=== PATIENT | male | born 1955 | race Caucasian/White ===

== ENCOUNTER 2024-05-15 10:36 | Observation (INO) ==
--- NOTE | 2024-05-15 11:26 | DR.AMS ---
HPI Time Seen Time Seen by Provider: 05/15/24 10:48 HPI Comment HPI Comment: Patient with altered mental status and weakness over the last couple of weeks. Patient's states that he is not acting himself has appeared more confused than usual. Patient does have a history of esophageal cancer stage IV and had a trach which has been pulled. Patient is not very responsive and family is not in the room at this time but report had a that initial call was for stroke. PMH PMH Past Medical History: Cancer Past Surgical History: Yes Surgical History: Angioplasty/Stents Family History Family Medical History: [place] Social History Do you use any recreational Drugs:: No ROS Review of Systems Constitutional: See HPI and Weakness Respiratoy: No Symptoms Reported Cardiovascular: negative Chest Pain Neurological: Weakness; negative Numbness, Paresthesia, Seizure, Tingling or Dizziness Unable to Obtain Due To: Altered mental status (History limited due to patient condition. Patient responded by nodding to some questions) PE Vitals Vital Signs: Temp Pulse Resp BP Pulse Ox O2 Del Method 05/15/24 16:15 79 17 05/15/24 16:15 176/100 05/15/24 16:00 169/130 05/15/24 16:00 104 H 17 05/15/24 15:45 81 17 05/15/24 15:45 151/107 05/15/24 15:30 172/99 05/15/24 15:30 86 20 05/15/24 15:16 90 15 99 05/15/24 15:16 162/104 05/15/24 15:15 114 H 16 100 05/15/24 15:01 117 H 15 05/15/24 15:01 180/123 05/15/24 15:00 116 H 21 05/15/24 14:45 114 H 20 05/15/24 14:45 162/117 05/15/24 14:30 113 H 20 05/15/24 14:30 149/102 05/15/24 14:15 113 H 13 05/15/24 14:15 140/85 05/15/24 14:00 146/89 05/15/24 14:00 104 H 18 05/15/24 13:45 152/104 05/15/24 13:45 119 H 18 05/15/24 13:30 122 H 15 05/15/24 13:30 145/88 05/15/24 13:15 118 H 21 05/15/24 13:15 150/101 05/15/24 13:08 115 H 16 100 05/15/24 13:08 158/101 05/15/24 13:00 160/115 05/15/24 13:00 118 H 17 05/15/24 12:45 93 H 18 05/15/24 12:38 115 H 15 100 05/15/24 12:38 163/121 05/15/24 12:30 122 H 17 98 05/15/24 12:15 88 18 83 L 05/15/24 12:00 87 17 99 05/15/24 12:00 225/123 05/15/24 11:45 87 15 05/15/24 11:31 120 H 14 05/15/24 11:31 216/112 05/15/24 11:30 120 H 15 05/15/24 11:15 123 H 14 100 05/15/24 11:09 85 10 L 100 05/15/24 11:09 248/118 05/15/24 11:06 85 25 H 05/15/24 10:57 87 21 05/15/24 10:51 97.8 F 83 227/122 100 Room Air General Limitations: Altered Mental Status General Appearance: Alert and Other (Confused) Head Head Exam: Normal Inspection, Atraumatic and Normocephalic Eyes Eye exam: Normal Appearance Pupils: Regular, Round: Left and Reactive: Left ENT ENT Exam: Normal Exam External Ear Exam: Normal External Inspection Nose Exam: Normal Nose Exam Mouth Exam: Normal Inspection Throat Exam: Normal Inspection Neck Neck Exam: Normal Inspection Chest Chest Inspection: Normal Inspection Respiratory Respiratory Exam: Normal Lung Sounds Bilat Cardiovascular Cardiovascular Exam: Regular Rate and Normal Rhythm Abdominal Exam Abdominal Exam: Normal Inspection, Normal Bowel Sounds and Soft Extremities Extremities Exam: Normal Inspection Back Back Exam: Normal Inspection Neurological Neurological Exam: Alert, CN II-XII Intact and Other (See teleneuro.) Psychological Psychiatric Exam: Normal Affect and Normal Mood Skin Skin Exam: Warm, Dry, Intact and Normal Color COURSE Treatment Treatment: Discussed case with teleneuro Dr. Aguilar. No acute stroke noted on CT but older lacunar type infarcts in changes noted. Patient appears to be having more issues with failure to thrive and poor nutrition. They recommended MRI in the next few days for follow-up. We attempted CTA but having a very difficult time with IV access. Teleneuro recommended continuing Plavix and using 81 mg aspirin at this time. Teleneuro called again and we discussed her options and CTA has not been able to be done due to difficulties with IV access. Attempts with more than slants have failed. Will discuss with vascular surgeon to possibly attempt central line. Due to this issue with vascular axis will try MRI without contrast, however there is limited access to this modality at this location at this time. Given the patient's history and symptoms along with previous imaging I think it would be reasonable if unable to do MRI tonight to do it in the morning. Consultation Called: 17:15 Consultation Comments: Discussed case with Dr. Sarabia and he is agreeable to admission. [facility] Labs Reviewed 05/15/24 12:35 05/15/24 12:35 Laboratory: WBC 4.4 X10^3/uL (3.6-10.0) 05/15/24 12:35 RBC 4.17 X10^6/uL (4.7-6.0) L 05/15/24 12:35 Hgb 12.1 g/dL (13.5-18.0) L 05/15/24 12:35 Hct 36.5 % (42.0-54.0) L 05/15/24 12:35 MCV 87.5 fL (80.0-100.0) 05/15/24 12:35 MCH 29.0 pg (27.0-34.0) 05/15/24 12:35 MCHC 33.1 g/dL (33.0-35.0) 05/15/24 12:35 RDW 24.4 % (11.6-16.5) H 05/15/24 12:35 Plt Count 141 X10^3/uL (150.0-450.0) L 05/15/24 12:35 Plt Count Comment Decreased (ADEQUATE) 05/15/24 12:35 MPV 9.2 fL (7.4-11.0) 05/15/24 12:35 Neut % (Auto) 68.9 % (42.0-75.0) 05/15/24 12:35 Lymph % (Auto) 15.0 % (21.0-51.0) L 05/15/24 12:35 [place] % (Auto) 14.8 % (0.0-13.0) H 05/15/24 12:35 Eos % (Auto) 0.3 % (0.9-2.9) L 05/15/24 12:35 Baso % (Auto) 1.0 % (0.2-1.0) 05/15/24 12:35 Neut # (Auto) 3.0 x10^3/uL (2.2-4.8) 05/15/24 12:35 Lymph # (Auto) 0.7 X10^3/uL (1.3-2.9) L 05/15/24 12:35 [place] # (Auto) 0.6 x10^3/uL (0.3-0.8) 05/15/24 12:35 Eos # (Auto) 0.0 x10^3/uL (0.0-0.2) 05/15/24 12:35 Baso # (Auto) 0.0 X10^3/uL (0.0-0.1) 05/15/24 12:35 Absolute Nucleated RBC 0.2 /100WBC 05/15/24 12:35 Plt Morphology Comment Normal (NORMAL) 05/15/24 12:35 RBC Morphology Abnormal (NORMAL) 05/15/24 12:35 Anisocytosis 3+ A 05/15/24 12:35 Target Cells Slight A 05/15/24 12:35 Schistocytes Slight A 05/15/24 12:35 Sodium 138 mmol/L (136-145) 05/15/24 12:35 Corrected Sodium TNP 05/15/24 12:35 Potassium 3.5 mmol/L (3.5-5.1) 05/15/24 12:35 Chloride 99 mmol/L (98-107) 05/15/24 12:35 Carbon Dioxide 29.9 mmol/L (21-32) 05/15/24 12:35 BUN 17 mg/dL (7-18) 05/15/24 12:35 Creatinine 1.41 mg/dL (0.70-1.30) H 05/15/24 12:35 Est GFR (MDRD) Af Amer > 60 (>60) 05/15/24 12:35 Est GFR (MDRD) Non-Af 53 (>60) L 05/15/24 12:35 Glucose 86 mg/dL (65-99) 05/15/24 12:35 Calcium 8.8 mg/dL (8.5-10.1) 05/15/24 12:35 Corrected Calcium 9.9 mg/dL (8.5-10.1) 05/15/24 12:35 Total Bilirubin 0.60 mg/dL (0.2-1.0) 05/15/24 12:35 AST 66 Units/L (15-37) H 05/15/24 12:35 ALT 20 Units/L (12-78) 05/15/24 12:35 Alkaline Phosphatase 109 Units/L (46-116) 05/15/24 12:35 Total Protein 8.5 g/dL (6.4-8.2) H 05/15/24 12:35 Albumin 2.6 g/dL (3.4-5.0) L 05/15/24 12:35 Globulin 5.9 g/dL (2.5-4.5) H 05/15/24 12:35 Albumin/Globulin Ratio 0.4 Ratio (1.1-2.1) L 05/15/24 12:35 Specimen Type Clean catch urine 05/15/24 11:55 Urine Color Yellow (YELLOW) 05/15/24 11:55 Urine Appearance Clear (CLEAR) 05/15/24 11:55 Urine pH 6.5 (5.0 - 8.0) 05/15/24 11:55 Ur Specific [place] 1.020 (1.000-1.030) 05/15/24 11:55 Urine Protein 4+ (NEGATIVE) 05/15/24 11:55 Urine Glucose (UA) Negative (NEGATIVE) 05/15/24 11:55 Urine Ketones Negative (NEGATIVE) 05/15/24 11:55 Urine Blood 3+ (NEGATIVE) 05/15/24 11:55 Urine Nitrite Negative (NEGATIVE) 05/15/24 11:55 Urine Bilirubin Negative (NEGATIVE) 05/15/24 11:55 Urine Urobilinogen Normal (NORMAL) 05/15/24 11:55 Ur Leukocyte Esterase Negative (NEGATIVE) 05/15/24 11:55 Urine RBC 0-2 /HPF (0-3) 05/15/24 11:55 Urine WBC None seen /HPF (0-5) 05/15/24 11:55 Ur Squamous Epith Cells Negative /HPF (NEGATIVE) 05/15/24 11:55 Urine Bacteria Trace /HPF (NEGATIVE) 05/15/24 11:55 Hyaline Casts Rare /LPF (NEGATIVE) 05/15/24 11:55 Ur Culture Indicated? No/not indicated 05/15/24 11:55 Urine Opiates Screen Negative (NEG=<300) 05/15/24 11:55 Urine Methadone Screen Negative (NEG=<300) 05/15/24 11:55 Ur Barbiturates Screen Negative (NEG=<200) 05/15/24 11:55 Ur Phencyclidine Scrn Negative (NEG=<25) 05/15/24 11:55 Ur Amphetamines Screen Negative (NEG=<1000) 05/15/24 11:55 U Benzodiazepines Scrn Negative (NEG=<200) 05/15/24 11:55 Urine Cocaine Screen Negative (NEG=<300) 05/15/24 11:55 U Marijuana (THC) Screen Negative (NEG=<50) 05/15/24 11:55 Opioid Opioid Risk Tool Age (Diego box if 16-45): No History of Preadolescent Sexual Abuse: No Total: 0 Total Score Risk Category: Low Risk Copyright: Tino DE LA CRUZ predicting aberrant behaviors Discharge Plan Diagnosis Discharge Problem: Suspected cerebrovascular accident (CVA), Adult failure to thrive, Physical deconditioning Altered mental status Qualifiers: Altered mental status type: unspecified Qualified Code(s): R41.82 - Altered mental status, unspecified Discharge Plan Patient Disposition: 09 ADMITTED INPATIENT Condition: Stable Prescriptions: No Action clopidogrel [Plavix] 75 mg Tablet 75 mg PO DAILY levothyroxine 100 mcg Tablet 100 mcg PO DAILY rosuvastatin 20 mg Tablet 20 mg PO HS aspirin 81 mg Capsule 81 mg PO QDAY Health Concerns: Post Hospitalization: new medications and changes needed to prevent readmission or further decline. Pt educated and given instructions on all concerns. Plan of Treatment: Continue with present treatment and follow up plan. Pt is to keep follow up appointment as instructed and take medications as ordered. Orders to Discharge Patient Discharge Orders: Transfer (Routine); Ordered 05/15/24 Ordered By: Kole Moreno Follow ups/Referrals Follow ups/Referrals: RISHABH SARABIA [Primary Care Provider] - 3 days Instructions Stand Alone Forms: Find Help Web Site, Post Hospital Follow Up Care
--- NOTE | 2024-05-15 11:28 | EKG ---
Test Reason : AMS Blood Pressure : */* mmHG Vent. Rate : 88 BPM Atrial Rate : 88 BPM P-R Int : 160 ms QRS Dur : 82 ms QT Int : 402 ms P-R-T Axes : 53 53 12 degrees QTc Int : 486 ms Sinus rhythm with premature atrial complexes Septal infarct , age undetermined Abnormal ECG No previous ECGs available Confirmed by Kevin Herrmann MD ([id number]) on 05/15/2024 1:52:30 PM Referred By: Confirmed By: Kevin Herrmann MD
--- NOTE | 2024-05-15 11:45 | CT ---
EXAM: BRAIN W/O CON HISTORY: AMS/STOKE SUSPECTED; COMPARISON: None. TECHNIQUE: Axial CT of the head is performed from the base of the skull through the vertex without contrast . Mu ltiplaner reformats are generated from the original axial data. FINDINGS: The baseline CT of the head demonstrates advanced degenerative white matter changes consisting of con fluent hypoattenuation of the deep periventricular, subcortical, and capsular white matter tracts of the supratentorial brain, also contiguous with the superior cerebellum and central pontine regions. There are several chronic appearing lacunar infarctions which involve aspects of the left internal ca psule, putamen nucleus and left thalamus. The initial CT of the head demonstrates no intracranial he morrhage or acute stage, large artery territorial infarction. There is no global mass effect, midlin e shift, or evidence of cerebral edema. The ventricular size is concordant to the degree of central cortical volume loss. There is atherosclerosis of the anterior and posterior intracranial circulatio n. The cerebellar tonsils are normal in position. No suprasellar asymmetry is identified. There are tr jill bilateral mastoid effusions dependently. There is a small mucous retention cyst or polyp associa ralph with the right sphenoid sinus. The remaining sinuses are predominantly clear. IMPRESSION: No intracranial hemorrhage or large artery territorial infarction identified on the initial CT of the head Advanced degenerative white matter signal changes and remote lacunar infarctions related to chronic s mall-vessel ischemia as detailed above. Central cortical volume loss with ex vacuo dilatation of the ventricular system If there is definite, focal, acute neurologic deficit, follow up imaging is recommended to evaluate f or evolutionary changes. MRI with DWI provides the highest level of initial sensitivity for the detec tion of acute ischemic infarcts. Radiation dose reduction was achieved through individualized adjustment of kVP and/or mA, through ada ptive statistical iterative reconstruction, and/or through automated tube current modulation. THIS IS AN ELECTRONICALLY VERIFIED FINAL REPORT 05/15/2024 11:30 AM - Electronically signed by Dwayne Torres MD
[2024-05-15 12:06] LABS: BILIRUBIN,URINE NEGATIVE (NEGATIVE); BLOOD/HEMOGLOBIN,URINE 3+ (NEGATIVE); GLUCOSE, URINE NEGATIVE (NEGATIVE); KETONES,URINE NEGATIVE (NEGATIVE); LEUKOCYTE ESTERASE ,URINE NEGATIVE (NEGATIVE); NITRITES,URINE NEGATIVE (NEGATIVE); PH,URINE 6.5 (5.0 - 8.0); PROTEIN,URINE 4+ (NEGATIVE); UROBILINOGEN,URINE NORMAL (NORMAL)
[2024-05-15 12:15] LABS: APPEARANCE,URINE CLEAR (CLEAR); COLOR,URINE YELLOW (YELLOW)
[2024-05-15 12:16] LABS: BACTERIA,URINE TRACE /HPF (NEGATIVE); HYALINE CASTS, URINE RARE /LPF (NEGATIVE); RBC,URINE 0-2 /HPF (0-3); SQUAMOUS EPITHELIAL CELL,UR NEGATIVE /HPF (NEGATIVE)
--- NOTE | 2024-05-15 12:23 | TELESTROKE ---
[facility] Consult Date of Consult Date of Exam: 05/15/24 Time of Arrival to the ED: 10:36 Allergies Allergies Allergy/AdvReac Type Severity Reaction Status Date / Time oxycodone Allergy Verified 03/26/24 22:13 Vital Signs Vital Signs: Temp Pulse Resp BP Pulse Ox O2 Del Method 05/15/24 12:00 87 17 99 05/15/24 12:00 225/123 05/15/24 11:45 87 15 05/15/24 11:31 120 H 14 05/15/24 11:31 216/112 05/15/24 11:30 120 H 15 05/15/24 11:15 123 H 14 100 05/15/24 11:09 85 10 L 100 05/15/24 11:09 248/118 05/15/24 11:06 85 25 H 05/15/24 10:57 87 21 05/15/24 10:51 97.8 F 83 227/122 100 Room Air History of Present Illness History of Present Illness: [facility] Patient Name:Cade Cabral Date of :1955 Identification Number: Date of Service:05/15/2024 10:49:21 Diagnosis:G93.49 - Encephalopathy Multifactorial Impression: 68 y/o man with history of throat cancer s/p trach, htn, cad, hld, PAD who is here w/ AMS and generalized weakness. He has had a decline in the last month and then worsened significantly overnight. ?subacute stroke vs metabolic encephalopathy from failure to thrive. He is not in the window for thrombolytic. Will need cta head/neck stat and admit for MRI brain w/o. Ok to add asa today to plavix. Start MVI and thiamine. Check b12, folate. Our recommendations are outlined below. Recommendations: Stroke/Telemetry Floor Neuro Checks Bedside Swallow Eval DVT Prophylaxis IV Fluids, Normal Saline Head of Bed 30 Degrees Euglycemia and Avoid Hyperthermia (PRN Acetaminophen) Initiate or continue Aspirin 81 MG daily Initiate Clopidogrel 75 mg daily Antihypertensives PRN if Blood pressure is greater than 220/120 or there is a concern for End organ damage/contraindications for permissive HTN. If blood pressure is greater than 220/120 give labetalol PO or IV or Vasotec IV with a goal of 15% reduction in BP during the first 24 hours. check b12, folate start thiamine, mvi Sign Out: Discussed with Emergency Department Provider Advanced Imaging: Advanced imaging has been ordered. Results pending. Metrics: Last Known Well: Unknown Dispatch Time: 05/15/2024 10:49:21 Arrival Time: 05/15/2024 10:36:00 Initial Response Time: 05/15/2024 10:53:45Symptoms: AMS and generalized weakness. Initial patient interaction: 05/15/2024 11:02:48 NIHSS Assessment Completed: 05/15/2024 11:19:18Patient is not a candidate for Thrombolytic. Thrombolytic Medical Decision: 05/15/2024 11:19:19Patient was not deemed candidate for Thrombolytic because of following reasons: LKW outside 4.5 hr window. . I personally Reviewed the CT Head and it Showed old stroke left caudate -no acute bleed Primary Provider Notified of Diagnostic Impression and Management Plan on: 05/15/2024 11:26:07 History of Present Illness:Patient is a 68 year old Male. Patient was brought by EMS for symptoms of AMS and generalized weakness. Cade Cabral is a 68 y/o man with history of throat cancer s/p trach, htn, cad, hld, PAD who is here w/ AMS and generalized weakness. Family called EMS because he was lethargic and unable to walk. She had to help him to the bathroom, then he got up and was frozen, would not move and to keep him falling, she stood for two hours holding him up. She did this b/c she had no signal for cell phone. Per the he has been weak for the last month, not eating much, confused. He is needing help in the last week to eat, leaning on the things to walk, spends most of his time in a recliner. It really went downhill last night w/ needing more help. She s/w his vascular surgeon yesterday about his mental status who told it might improve after surgery next week for left lower leg PAD. Past Medical History: Hyperlipidemia Coronary Artery Disease There is no history of Hypertension There is no history of Diabetes Mellitus Other PMH: PAD throat cancer s/p trach Medications: No Anticoagulant use Antiplatelet use:Yesplavix and asa Reviewed EMR for current medications Allergies: Reviewed Social History: Smoking: Former Family History: There is no family history of premature cerebrovascular disease pertinent to this consultation ROS : 14 Points Review of Systems was performed and was negative except mentioned in HPI. Past Surgical History: There Is No Surgical History Contributory To Todays Visit Examination: BP(227/122),Pulse(83),Blood Glucose(145) 1A: Level of Consciousness - Arouses to minor stimulation+ 1 1B: Ask Month and Age - Both Questions Right+ 0 1C: Blink Eyes & Squeeze Hands - Performs Both Tasks+ 0 2: Test Horizontal Extraocular Movements - Normal+ 0 3: Test Visual Handy - No Visual Loss+ 0 4: Test Facial Palsy (Use Grimace if Obtunded) - Normal symmetry+ 0 5A: Test Left Arm Motor Drift - Drift, hits bed+ 2 5B: Test Right Arm Motor Drift - Drift, hits bed+ 2 6A: Test Left Leg Motor Drift - No Effort Against [place]+ 3 6B: Test Right Leg Motor Drift - No Effort Against [place]+ 3 7: Test Limb Ataxia (FNF/Heel-Roper) - Does Not Understand+ 0 8: Test Sensation - Normal; No sensory loss+ 0 9: Test Language/Aphasia - Normal; No aphasia+ 0 10: Test Dysarthria - Normal+ 0 11: Test Extinction/Inattention - No abnormality+ 0 NIHSS Score:11 NIHSS Free Text :s/p trach and speaking device is at home, cannot speak he is able to nod and shake his head appropriately can point to items Pre-Morbid Modified Mcculloch Scale:2 Points = Slight disability; unable to carry out all previous activities, but able to look after own affairs without assistance Spoke with :Collin This consult was conducted in real time using interactive audio and video technology. Patient was informed of the technology being used for this visit and agreed to proceed. Patient located in hospital and provider located at home/office setting. Patient is being evaluated for possible acute neurologic impairment and high probability of imminent or life-threatening deterioration. I spent total of 45 minutes providing care to this patient, including time for face to face visit via telemedicine, review of medical records, imaging studies and discussion of findings with providers, the patient and/or family. Dr Suzan Ayala [facility] For Inpatient follow-up with [facility] physician please call [facility] at . As we are not an outpatient service for any post hospital discharge needs please contact the hospital for assistance. If you have any questions for the [facility] physicians or need to reconsult for clinical or diagnostic changes please contact us via [facility] at . Medical Decision Making Labs: Laboratory Results - last 24 hr 05/15/24 11:55 Specimen Type Clean catch urine Urine Color Yellow Urine Appearance Clear Urine pH 6.5 Ur Specific [place] 1.020 Urine Protein 4+ Urine Glucose (UA) Negative Urine Ketones Negative Urine Blood 3+ Urine Nitrite Negative Urine Bilirubin Negative Urine Urobilinogen Normal Ur Leukocyte Esterase Negative Urine RBC 0-2 Urine WBC None seen Ur Squamous Epith Cells Negative Urine Bacteria Trace Hyaline Casts Rare Ur Culture Indicated? No/not indicated Urine Opiates Screen Negative Urine Methadone Screen Negative Ur Barbiturates Screen Negative Ur Phencyclidine Scrn Negative Ur Amphetamines Screen Negative U Benzodiazepines Scrn Negative Urine Cocaine Screen Negative U Marijuana (THC) Screen Negative
[2024-05-15] MEDS: APRESOLINE INJ 20 MG VIAL IVP ONE (12:39)
[2024-05-15 13:06] LABS: EOSINOPHILS % (AUTO) 0.3 % (0.9-2.9); HEMATOCRIT 36.5 % (42.0-54.0); HEMOGLOBIN 12.1 g/dL (13.5-18.0); LYMPHOCYTES # (AUTO) 0.7 X10^3/uL (1.3-2.9); MEAN CORPUSCULAR HGB CONC 33.1 g/dL (33.0-35.0); MEAN CORPUSCULAR VOLUME 87.5 fL (80.0-100.0); MEAN PLATELET VOLUME 9.2 fL (7.4-11.0); MONOCYTES # (AUTO) 0.6 x10^3/uL (0.3-0.8); MONOCYTES % (AUTO) 14.8 % (0.0-13.0); NEUTROPHILS % (AUTO) 68.9 % (42.0-75.0); PLATELET COUNT 141 X10^3/uL (150.0-450.0); RED BLOOD COUNT 4.17 X10^6/uL (4.7-6.0); RED CELL DISTRIBUTION WIDTH 24.4 % (11.6-16.5); WHITE BLOOD COUNT 4.4 X10^3/uL (3.6-10.0)
[2024-05-15 13:20] LABS: ALANINE AMINOTRANSFERASE 20 Units/L (12-78); ALBUMIN 2.6 g/dL (3.4-5.0); ALKALINE PHOSPHATASE 109 Units/L (46-116); ASPARTATE AMINO TRANSFERASE 66 Units/L (15-37); BLOOD UREA NITROGEN 17 mg/dL (7-18); CALCIUM 8.8 mg/dL (8.5-10.1); CARBON DIOXIDE 29.9 mmol/L (21-32); CHLORIDE 99 mmol/L (98-107); COR CA(FOR HYPOALB) 9.9 mg/dL (8.5-10.1); CREATININE 1.41 mg/dL (0.70-1.30); GLUCOSE 86 mg/dL (65-99); POTASSIUM 3.5 mmol/L (3.5-5.1); SODIUM 138 mmol/L (136-145); TOTAL PROTEIN 8.5 g/dL (6.4-8.2); eGFR NON BLACK RACES 53 (>60)
[2024-05-15 13:42] LABS: ANISOCYTOSIS 3+; PLATELET MORPHOLOGY COMMENT NORMAL (NORMAL)
[2024-05-15 13:43] LABS: SCHISTOCYTES SLIGHT; TARGET CELLS SLIGHT
--- NOTE | 2024-05-15 14:18 | RAD ---
EXAM: CHEST HISTORY: stroke; COMPARISON: None. TECHNIQUE: Frontal view of the chest was submitted for interpretation. FINDINGS: The cardiomediastinal silhouette enlarged lungs show no focal consolidation, pneumothorax, or pleura l fluid. IMPRESSION: No acute cardiopulmonary process. THIS IS AN ELECTRONICALLY VERIFIED FINAL REPORT 05/15/2024 2:14 PM - Electronically signed by Burton Titus MD
[2024-05-15] MEDS: NS 1,000 ML IV 1,000 ML IV ONE (14:39)
[2024-05-15] MEDS: ASPIRIN 81 MG CHEWTAB PO ONE (14:39)
[2024-05-15] MEDS: MVI INJ (ADULT) IV ONE (14:40)
--- NOTE | 2024-05-15 20:00 | CT ---
EXAM: CAROTID CTA HISTORY: Possible CVA COMPARISON: None. TECHNIQUE: Axial CT angiography of the neck with 100 mL Omnipaque 350 intravenous contrast. Coronal, sagittal an d MIP and/or 3D reconstructed images were created for further characterization by the technologist. Radiation dose: 681.99 mGy-cm total DLP FINDINGS: Right common carotid artery: No clinically significant stenosis, occlusion or dissection. Right internal carotid artery: No clinically significant stenosis of the extracranial segment. No dis section or occlusion. Right external carotid artery: No occlusion or clinically significant stenosis of the origin. Right vertebral artery: No clinically significant stenosis, occlusion or dissection. Left common carotid artery: No clinically significant stenosis, occlusion or dissection.. Left internal carotid artery: Up to 50% short-segment stenosis at the immediate origin of the left in ternal carotid artery secondary to calcified atherosclerotic plaque; 6 mm segment. No dissection or occlusion. Left external carotid artery: No occlusion or clinically significant stenosis of the origin. Left vertebral artery: No clinically significant stenosis. No dissection or occlusion. Bones/joints: No acute fracture. Soft tissues: Normal. No significant soft tissue swelling. Lungs: Imaged portion of the lungs are clear of focal airspace disease. Mild centrilobular and bharath eptal emphysema. IMPRESSION: 1. Up to 50% short-segment stenosis at the immediate origin of the left internal carotid artery secon speedy to calcified atherosclerotic plaque; 6 mm segment. No clinically significant stenosis, occlusio n or dissection identified involving the remainder arterial structures of the neck. 2. Mild centrilobular emphysema. REFERENCES: NASCET CRITERIA: The degree of internal carotid artery stenosis is based on NASCET criter ia. Normal is no stenosis. Mild is less than 50% stenosis. Moderate is 50-69% stenosis. Severe is 70% to 99% stenosis. Total occlusion is no detectable patent lumen. THIS IS AN ELECTRONICALLY VERIFIED FINAL REPORT 05/15/2024 7:48 PM - Electronically signed by Darien Hester MD
--- NOTE | 2024-05-15 20:00 | CT ---
EXAM: BRAIN CTA HISTORY: Possible CVA COMPARISON: CT head without contrast from May 15 2024 TECHNIQUE: Axial CT angiography of the head with intravenous contrast. Coronal, sagittal and MIP and/or 3D recon structed images were created for further characterization by the technologist. Radiation dose: mGy-cm total DLP FINDINGS: Anterior Circulation: Right internal carotid artery: No clinically significant stenosis, occlusion or aneurysm. Right middle cerebral artery: No clinically significant stenosis, occlusion or aneurysm. Right anterior cerebral artery: No clinically significant stenosis, occlusion or aneurysm. Left internal carotid artery: No clinically significant stenosis, occlusion or aneurysm. Left middle cerebral artery: No clinically significant stenosis, occlusion or aneurysm. Left anterior cerebral artery: No clinically significant stenosis, occlusion or aneurysm. Posterior Circulation: Right vertebral artery: Atherosclerotic changes involving the right intracranial segment of the right vertebral artery with multifocal areas of critical stenosis. Left vertebral artery: No clinically significant stenosis, occlusion or aneurysm. Basilar artery: No clinically significant stenosis, occlusion or aneurysm. Right posterior cerebral artery: No clinically significant stenosis, occlusion or aneurysm. Left posterior cerebral artery: No clinically significant stenosis, occlusion or aneurysm. Venous: No filling defects in the dural venous sinuses. Brain: No abnormal areas of acute attenuation in the brain parenchyma. Periventricular chronic micro vascular disease and age related global atrophy. Band of encephalomalacia in the left basal ganglia extending to the mid left alegria radiata. Bones/joints: No acute osseous abnormality. Soft tissues: Unremarkable. IMPRESSION: 1. Atherosclerotic changes involving the right intracranial segment of the right vertebral artery wit h multifocal areas of critical stenosis. No clinically significant stenosis, occlusion or aneurysm i dentified involving the remaining intracranial arterial structures. 2. No evidence of dural venous thrombosis. 3. Periventricular chronic microvascular disease and age related global atrophy. 4. Band of encephalomalacia in the left basal ganglia extending to the mid left alegria radiata. THIS IS AN ELECTRONICALLY VERIFIED FINAL REPORT 05/15/2024 7:53 PM - Electronically signed by Darien Hester MD
[2024-05-15] MEDS ORDERED: NS 1,000 ML IV 1,000 ML with MAGNESIUM SULFATE 50% INJ VIAL 1 G, MVI INJ (ADULT) 10 ML IV SCH (21:51)
[2024-05-15] MEDS ORDERED: CONSULT PHARMACY - POTASSIUM & MAGNESIUM XX SCH (21:51)
[2024-05-15] MEDS: NS 500 ML IV 500 ML IV ONE (22:35)
[2024-05-15] MEDS: OMNIPAQUE 350 mg/mL 100 mL BTL 100 ML ONE ×2 (22:36)
[2024-05-15] MEDS: NS 1,000 ML IV 1,000 ML ONE (22:36)
--- NOTE | 2024-05-15 23:05 | RAD ---
EXAM: CHEST, 1 VIEW HISTORY: confirm central line placement; COMPARISON: May 15, 2024 at 11:15. TECHNIQUE: Chest radiographic imaging, AP portable projection, 1 image FINDINGS: No cardiomegaly. Central line tip overlies the lower SVC at the cavoatrial junction. No focal airspace disease. No pleural effusion. No pneumothorax. No acute osseous abnormality. IMPRESSION: 1. No significant interval acute cardiopulmonary changes. 2. Central line tip overlies the lower SVC at the cavoatrial junction. THIS IS AN ELECTRONICALLY VERIFIED FINAL REPORT 05/15/2024 11:01 PM - Electronically signed by Darien Hester MD
[2024-05-15] MEDS: NS 1,000 ML IV 1,000 ML IV SCH (23:13)
[2024-05-16] MEDS: K-RIDER 10 MEQ/100 ML WATER 10 MEQ/100 ML BAG IV SCH (00:07)
[2024-05-16] MEDS: NS 1,000 ML IV 1,000 ML with MAGNESIUM SULFATE 50% INJ VIAL 1 G, MVI INJ (ADULT) 10 ML IV SCH (00:08)
[2024-05-16] MEDS: CRESTOR TAB 10 MG PO SCH (00:09)
--- NOTE | 2024-05-16 05:15 | EKG ---
Test Reason : Per Hypertension Protocol Blood Pressure : */* mmHG Vent. Rate : 128 BPM Atrial Rate : 128 BPM P-R Int : 150 ms QRS Dur : 84 ms QT Int : 318 ms P-R-T Axes : 89 80 -25 degrees QTc Int : 464 ms Sinus tachycardia Possible Anterior infarct (cited on or before 15-MAY-2024) Abnormal ECG When compared with ECG of 15-MAY-2024 11:24, premature atrial complexes are no longer present Questionable change in initial forces of Anteroseptal leads ST now depressed in Anterolateral leads Confirmed by Kevin Herrmann MD ([id number] on 05/16/2024 6:27:26 AM Referred By: Confirmed By: Kevin Herrmann MD
[2024-05-16] MEDS: NORMODYNE INJ 20 MG VIAL IV PRN (05:17)
[2024-05-16 05:29] LABS: BASOPHILS % (AUTO) 0.5 % (0.2-1.0); EOSINOPHILS % (AUTO) 0.7 % (0.9-2.9); HEMATOCRIT 37.1 % (42.0-54.0); HEMOGLOBIN 12.2 g/dL (13.5-18.0); LYMPHOCYTES # (AUTO) 0.7 X10^3/uL (1.3-2.9); LYMPHOCYTES % (AUTO) 17.1 % (21.0-51.0); MEAN CORPUSCULAR HEMOGLOBIN 28.8 pg (27.0-34.0); MEAN CORPUSCULAR HGB CONC 32.8 g/dL (33.0-35.0); MEAN CORPUSCULAR VOLUME 87.8 fL (80.0-100.0); MEAN PLATELET VOLUME 9.4 fL (7.4-11.0); MONOCYTES # (AUTO) 0.7 x10^3/uL (0.3-0.8); MONOCYTES % (AUTO) 18.1 % (0.0-13.0); NEUTROPHILS # (AUTO) 2.5 x10^3/uL (2.2-4.8); NEUTROPHILS % (AUTO) 63.6 % (42.0-75.0); PLATELET COUNT 132 X10^3/uL (150.0-450.0); RED BLOOD COUNT 4.23 X10^6/uL (4.7-6.0); RED CELL DISTRIBUTION WIDTH 24.3 % (11.6-16.5); WHITE BLOOD COUNT 3.9 X10^3/uL (3.6-10.0)
[2024-05-16 05:38] LABS: ALANINE AMINOTRANSFERASE 14 Units/L (12-78); ALBUMIN 2.2 g/dL (3.4-5.0); ALKALINE PHOSPHATASE 96 Units/L (46-116); ASPARTATE AMINO TRANSFERASE 58 Units/L (15-37); BLOOD UREA NITROGEN 14 mg/dL (7-18); CARBON DIOXIDE 24.8 mmol/L (21-32); CHLORIDE 101 mmol/L (98-107); COR CA(FOR HYPOALB) 9.4 mg/dL (8.5-10.1); CREATININE 1.34 mg/dL (0.70-1.30); GLUCOSE 81 mg/dL (65-99); POTASSIUM 3.2 mmol/L (3.5-5.1); SODIUM 136 mmol/L (136-145); TOTAL PROTEIN 7.6 g/dL (6.4-8.2); eGFR NON BLACK RACES 57 (>60)
[2024-05-16 05:47] LABS: ANISOCYTOSIS 3+; BURR CELLS PRESENT; PLATELET MORPHOLOGY COMMENT NORMAL (NORMAL); SCHISTOCYTES PRESENT; TARGET CELLS PRESENT
[2024-05-16] MEDS ORDERED: CONSULT PHARMACY - POTASSIUM & MAGNESIUM XX SCH (09:00)
[2024-05-16] MEDS ORDERED: NS + KCL 20 MEQ/L 1,000 ML with MAGNESIUM SULFATE 50% INJ VIAL 1 G, MVI INJ (ADULT) 10 ML IV SCH (10:00)
[2024-05-16] MEDS ORDERED: TOPROL XL PO ONE (10:41)
[2024-05-16] MEDS: TOPROL XL PO SCH (10:41)
[2024-05-16] MEDS: MICARDIS PO SCH (10:41)
[2024-05-16] MEDS: PLAVIX PO SCH (10:42)
[2024-05-16] MEDS: SYNTHROID 100 mcg TAB PO SCH (10:42)
[2024-05-16] MEDS: LOVENOX INJ 40 MG SYR SC SCH (10:43)
[2024-05-16] MEDS: ASPIRIN 81 MG CHEWTAB PO SCH (10:44)
[2024-05-16] MEDS: COLACE SYRUP 100 MG UDC PO NR (10:45)
[2024-05-16] MEDS ORDERED: NS 1,000 ML IV 1,000 ML IV SCH (11:00)
[2024-05-16] MEDS ORDERED: K-DUR TAB 20 MEQ PO SCH (11:00)
[2024-05-16] MEDS: NS 1,000 ML IV 1,000 ML IV SCH (11:02)
[2024-05-16] MEDS: COLACE CAP 100 MG PO STA (14:58)
[2024-05-16] MEDS: K-DUR TAB 20 MEQ PO SCH (17:48)
--- NOTE | 2024-05-16 19:56 | DR.CONSULT ---
CONSULT Consultation for Day of: Date: 05/16/24 Chief Complaint Chief Complaint: Change in mental status. Known bilateral significant peripheral vascular disease status post arterial intervention of the right leg for nonhealing wound including right superficial femoral artery atherectomy and drug-coated balloon angioplasty. 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 He been seeing me for bilateral significant peripheral vascular disease with complete occlusion of the left superficial artery and near complete occlusion of the right superficial femoral artery with nonhealing wound to the right great toe. He underwent atherectomy and balloon angioplasty of the right piriformis vein on March 26, 2024. He was post to have follow-up to see me to have the other side done but missed his appointment for surgery and his family said that he is had significant change of mental status and that is why he was brought to the emergency room today. He has had evaluation with no obvious identified diagnosis yet. Past Medical History Past Medical History: Coronary Artery Disease, CVA (History of CVA, no residual), Dyslipidemia and Cancer Additional Medical History: Bilateral lower extremity peripheral vascular disease Past Surgical History Surgical History: Angioplasty/Stents and Thyroidectomy Family History Family Medical History: SD and Hypertension Social History Does patient currently use any type of tobacco product: No Type of Tobacco Use: None Alcohol Use: None Drug Use: None Medications Home Medications: oxycodone Allergy (Verified 03/26/24 22:13) CONTINUE taking the following medications aspirin 81 mg capsule 81 mg PO QDAY 05/15/24 [History] Plavix 75 mg daily Rosuvastatin 20 mg daily Levothyroxine 100 mg daily Percocet Review of Systems Constitutional: See HPI (Patient confusion will not follow-up with exam or history. Appears to move all extremities.) Eyes: No Symptoms Reported ENT: No Symptoms Reported Respiratory: Other Cardiovascular: No Symptoms Reported Gastrointestinal: No Symptoms Reported Genitourinary: No Symptoms Reported Musculoskeletal: See HPI Skin: See HPI Neurological: See HPI Physical Exam Vital Signs: Vital Signs Temperature 98.2 F Temperature 98.2 F Pulse Rate 72 Pulse Rate 76 Respiratory Rate 16 Respiratory Rate 18 Blood Pressure 138/81 Blood Pressure 117/78 O2 Sat by Pulse Oximetry 98 O2 Sat by Pulse Oximetry 100 Oriented: negative Normal, Time, Person, Place or Not Oriented Eyes: Normal Ear: Normal Nose: Normal Throat: Other (end tracheostomy) Respiratory: Diminished Throughout Cardiovascular: Normal : Normal Auscultation: Bowel Sounds: Normal Palpation: Normal Tenderness: Normal Skin: Wound (Healing eschar medial and lateral to the right great toe) Musculoskeletal: Normal Psychiatric: Agitation (At times appears mildly agitated) and Other (Patient would not communicate or answer questions) Speech Pattern: Trach(not ventilated) and Unable to speak Plan (1) Adult failure to thrive: Status: Acute Plan: hydration and observation (2) Physical deconditioning: Status: Acute Plan: as above (3) Atherosclerosis of [place] arteries of extremities with rest pain, right leg: Status: Acute Plan: Right leg has already had arterial intervention and the right great toe is healing. He has missed follow-up to see me since early March of this year (4) Atherosclerosis of [place] arteries of extremities with rest pain, left leg: Status: Acute Plan: He will need intervention of the left leg he has complete occlusion of the left superficial femoral artery endangering his leg although this will not be done until we have a clear understanding of his change in mental status and to see if it improves any. (5) Personal history of malignant neoplasm of larynx: Status: Acute Plan: Reported no history of recurrence (6) Hyperlipidemia: Status: Acute Plan: Home medications (7) Hypothyroidism associated with surgical procedure: Status: Acute Plan: Continue his current thyroid dose. Awaiting TSH and thyroid laboratory values
[2024-05-17] MEDS: MICARDIS PO SCH (03:15)
[2024-05-17] MEDS: TOPROL XL PO SCH (03:16)
[2024-05-17 05:41] LABS: BASOPHILS % (AUTO) 0.8 % (0.2-1.0); EOSINOPHILS # (AUTO) 0.1 x10^3/uL (0.0-0.2); EOSINOPHILS % (AUTO) 1.4 % (0.9-2.9); HEMATOCRIT 33.4 % (42.0-54.0); HEMOGLOBIN 10.9 g/dL (13.5-18.0); LYMPHOCYTES # (AUTO) 0.7 X10^3/uL (1.3-2.9); LYMPHOCYTES % (AUTO) 16.9 % (21.0-51.0); MEAN CORPUSCULAR HEMOGLOBIN 28.4 pg (27.0-34.0); MEAN CORPUSCULAR HGB CONC 32.5 g/dL (33.0-35.0); MEAN CORPUSCULAR VOLUME 87.4 fL (80.0-100.0); MEAN PLATELET VOLUME 9.7 fL (7.4-11.0); MONOCYTES # (AUTO) 0.7 x10^3/uL (0.3-0.8); MONOCYTES % (AUTO) 16.9 % (0.0-13.0); NEUTROPHILS # (AUTO) 2.7 x10^3/uL (2.2-4.8); PLATELET COUNT 127 X10^3/uL (150.0-450.0); RED BLOOD COUNT 3.83 X10^6/uL (4.7-6.0); RED CELL DISTRIBUTION WIDTH 24.5 % (11.6-16.5); WHITE BLOOD COUNT 4.2 X10^3/uL (3.6-10.0)
[2024-05-17 05:53] LABS: ALANINE AMINOTRANSFERASE 15 Units/L (12-78); ALBUMIN 1.7 g/dL (3.4-5.0); ALKALINE PHOSPHATASE 80 Units/L (46-116); ASPARTATE AMINO TRANSFERASE 45 Units/L (15-37); BLOOD UREA NITROGEN 17 mg/dL (7-18); CALCIUM 7.3 mg/dL (8.5-10.1); CARBON DIOXIDE 23.5 mmol/L (21-32); CHLORIDE 106 mmol/L (98-107); COR CA(FOR HYPOALB) 9.1 mg/dL (8.5-10.1); COR NA(FOR HYPERGLY) 138 mmol/L (136-145); CREATININE 1.47 mg/dL (0.70-1.30); GLUCOSE 112 mg/dL (65-99); POTASSIUM 3.1 mmol/L (3.5-5.1); SODIUM 138 mmol/L (136-145); TOTAL PROTEIN 6.5 g/dL (6.4-8.2); eGFR NON BLACK RACES 51 (>60)
[2024-05-17 06:00] LABS: ANISOCYTOSIS 3+; PLATELET MORPHOLOGY COMMENT NORMAL (NORMAL); SCHISTOCYTES PRESENT
[2024-05-17] MEDS ORDERED: CONSULT PHARMACY - POTASSIUM & MAGNESIUM XX SCH (07:00)
[2024-05-17] MEDS: LINZESS PO SCH (08:31)
[2024-05-17] MEDS: K-DUR TAB 20 MEQ PO SCH ×2 (11:47→20:54)
[2024-05-17] MEDS ORDERED: TYLENOL 325 MG TAB PO PRN (23:12)
[2024-05-17] MEDS: LOPRESSOR TAB 50 MG PO SCH (23:12)
[2024-05-17] MEDS: MORPHINE SULFATE INJ 2 MG INJ IVP PRN (23:31)
[2024-05-18 05:27] LABS: HEMATOCRIT 34.7 % (42.0-54.0); HEMOGLOBIN 11.3 g/dL (13.5-18.0); MEAN CORPUSCULAR HEMOGLOBIN 28.8 pg (27.0-34.0); MEAN CORPUSCULAR VOLUME 88.6 fL (80.0-100.0); RED BLOOD COUNT 3.92 X10^6/uL (4.7-6.0)
[2024-05-18 05:33] LABS: BASOPHILS % (AUTO) 0.8 % (0.2-1.0); EOSINOPHILS # (AUTO) 0.1 x10^3/uL (0.0-0.2); LYMPHOCYTES % (AUTO) 22.8 % (21.0-51.0); MEAN CORPUSCULAR HGB CONC 32.6 g/dL (33.0-35.0); MEAN PLATELET VOLUME 9.6 fL (7.4-11.0); MONOCYTES # (AUTO) 0.8 x10^3/uL (0.3-0.8); MONOCYTES % (AUTO) 18.3 % (0.0-13.0); NEUTROPHILS # (AUTO) 2.5 x10^3/uL (2.2-4.8); NEUTROPHILS % (AUTO) 56.1 % (42.0-75.0); PLATELET COUNT 112 X10^3/uL (150.0-450.0); RED CELL DISTRIBUTION WIDTH 24.3 % (11.6-16.5); WHITE BLOOD COUNT 4.5 X10^3/uL (3.6-10.0)
[2024-05-18 05:35] LABS: ALANINE AMINOTRANSFERASE 13 Units/L (12-78); ALBUMIN 1.5 g/dL (3.4-5.0); ALKALINE PHOSPHATASE 79 Units/L (46-116); ASPARTATE AMINO TRANSFERASE 37 Units/L (15-37); BLOOD UREA NITROGEN 15 mg/dL (7-18); CALCIUM 6.9 mg/dL (8.5-10.1); CARBON DIOXIDE 21.7 mmol/L (21-32); CHLORIDE 110 mmol/L (98-107); COR CA(FOR HYPOALB) 8.9 mg/dL (8.5-10.1); CREATININE 1.21 mg/dL (0.70-1.30); GLUCOSE 78 mg/dL (65-99); POTASSIUM 3.4 mmol/L (3.5-5.1); SODIUM 140 mmol/L (136-145); TOTAL PROTEIN 6.2 g/dL (6.4-8.2); eGFR NON BLACK RACES > 60 (>60)
[2024-05-18 05:49] LABS: ANISOCYTOSIS 3+; BURR CELLS PRESENT; PLATELET MORPHOLOGY COMMENT NORMAL (NORMAL); SCHISTOCYTES PRESENT
--- NOTE | 2024-05-18 12:19 | CT ---
EXAM:BRAIN W/O CONHISTORY:ALTERED MENTAL STATUS;COMPARISON:May 15, 2024TECHNIQUE:Multiple axial images of the brain were obtained from the skull base to the vertex without administration of IV contrast. Dose reduction techniques including Automated Exposure Control (AEC) and adjustment of mA and kV were utilized.FINDINGS:No acute intraparenchymal hemorrhage or mass can be identified. No extra-axial fluid collections are seen. No alteration in the attenuation of the brain parenchyma can be identified to suggest acute or subacute ischemic change. Advanced small-vessel ischemic changes are noted along with old lacunar infarcts in the left basal ganglia and thalamus. Age-appropriate atrophic changes are also seen. Consider follow-up MRI if there is high concern for acute/subacute stroke. The ventricular system is symmetric and nondilated. The extracranial structures appear unremarkable.IMPRESSION:1. Stable chronic changes as above. There is concern for acute/subacute stroke and correlation with follow-up MRI may be of benefit.THIS IS AN ELECTRONICALLY VERIFIED FINAL REPORT05/18/2024 12:15 PM - Electronically signed by Rico Carrera MD
[2024-05-18] MEDS: MICARDIS PO ONE (12:40)
--- NOTE | 2024-05-18 14:16 | TELESTROKE ---
Tele[facility]Specialist Consult Date of Consult Date of Exam: 05/18/24 Time of Arrival to the ED: 14:15 Allergies Allergies Allergy/AdvReac Type Severity Reaction Status Date / Time oxycodone Allergy Verified 03/26/24 22:13 Vital Signs Vital Signs: Temp Pulse Pulse Resp BP BP Pulse Ox 05/18/24 12:00 137/87 05/18/24 12:00 97.6 F 58 L 13 100 05/18/24 11:00 129/78 05/18/24 11:00 57 L 12 100 05/18/24 10:14 59 L 12 100 05/18/24 10:14 152/86 05/18/24 10:02 154/89 05/18/24 10:02 59 L 12 100 05/18/24 10:00 175/94 05/18/24 10:00 63 18 100 05/18/24 09:00 123/78 05/18/24 09:00 54 L 15 100 05/18/24 08:00 117/62 05/18/24 08:00 52 L 16 100 05/18/24 07:00 49 L 17 100 05/18/24 07:00 119/77 05/18/24 06:00 157/92 05/18/24 06:00 55 L 13 100 05/18/24 05:00 154/94 05/18/24 05:00 58 L 15 100 05/18/24 04:06 56 L 14 100 05/18/24 04:06 176/91 05/18/24 04:03 69 18 100 05/18/24 04:03 166/100 05/18/24 04:01 168/111 05/18/24 04:01 104 H 12 100 05/18/24 04:00 161/115 05/18/24 04:00 104 H 15 100 05/18/24 03:05 162/95 05/18/24 03:05 61 16 100 05/18/24 03:00 61 15 100 05/18/24 03:00 159/102 05/18/24 02:00 61 13 100 05/18/24 02:00 168/82 05/18/24 01:00 164/91 05/18/24 01:00 60 16 100 05/18/24 00:54 61 19 100 05/18/24 00:54 155/86 05/18/24 00:49 178/110 05/18/24 00:49 59 L 15 100 05/18/24 00:00 185/104 05/18/24 00:00 56 L 14 100 05/17/24 23:08 68 20 100 05/17/24 23:08 135/99 05/17/24 23:08 135/99 05/17/24 23:00 61 17 100 05/17/24 22:00 142/100 05/17/24 22:00 60 15 100 05/17/24 21:01 65 17 100 05/17/24 21:01 158/83 05/17/24 21:00 61 18 100 05/17/24 20:00 52 L 19 100 05/17/24 20:00 133/79 05/17/24 19:00 46 L 12 100 05/18/24 07:00 05/18/24 04:00 98.3 F 58 L 14 176/91 100 05/18/24 00:01 11 L 05/18/24 00:00 97.9 F 61 19 155/86 100 05/17/24 20:00 97.9 F 52 L 10 L 133/79 100 05/17/24 19:00 05/17/24 23:31 16 05/17/24 16:00 149/73 05/17/24 16:00 60 16 100 05/17/24 15:00 97.8 F 50 L 13 100 05/17/24 15:00 110/76 05/17/24 14:05 107/62 05/17/24 14:05 51 L 13 100 05/17/24 14:02 47 L 11 L 100 05/17/24 14:01 48 L 9 L 100 05/17/24 14:00 48 L 13 100 05/17/24 13:01 54 L 16 100 05/17/24 13:01 102/68 05/17/24 13:00 52 L 12 100 05/17/24 12:07 50 L 14 100 05/17/24 12:07 121/64 05/17/24 12:00 97.9 F 55 L 18 100 05/17/24 11:05 51 L 16 100 05/17/24 11:05 123/67 05/17/24 11:00 53 L 12 100 05/17/24 10:38 51 L 13 100 05/17/24 10:38 93/67 05/17/24 10:01 54 L 12 100 05/17/24 10:01 107/66 05/17/24 10:00 55 L 13 100 05/17/24 09:01 134/83 05/17/24 09:01 64 16 100 05/17/24 09:00 63 19 100 05/17/24 08:00 133/64 05/17/24 08:00 97.7 F 57 L 16 05/17/24 07:00 56 L 18 05/17/24 07:00 121/66 05/17/24 06:00 60 15 98 05/17/24 06:00 121/86 05/17/24 05:01 62 19 98 05/17/24 05:01 115/74 05/17/24 05:00 62 19 99 05/17/24 04:00 111 H 16 98 05/17/24 04:00 122/59 05/17/24 03:04 69 18 99 05/17/24 03:04 107/67 05/17/24 03:00 70 19 98 05/17/24 02:01 84 18 100 05/17/24 02:01 180/108 05/17/24 02:01 180/108 05/17/24 02:01 180/108 05/17/24 02:00 82 18 100 05/17/24 01:25 77 15 100 05/17/24 01:25 165/97 05/17/24 01:00 72 13 99 05/17/24 01:00 183/90 05/17/24 00:00 198/99 05/17/24 00:00 79 18 100 05/16/24 23:00 62 14 99 05/16/24 23:00 144/79 05/16/24 22:00 79 15 100 05/16/24 22:00 156/82 05/16/24 21:00 62 13 100 05/16/24 21:00 148/81 05/16/24 20:00 136/77 05/16/24 20:00 65 13 99 05/16/24 19:00 145/85 05/16/24 19:00 67 17 100 05/16/24 18:00 73 13 99 05/16/24 18:00 143/88 05/16/24 17:00 118/70 05/16/24 17:00 71 18 98 05/16/24 16:00 138/81 05/16/24 16:00 75 17 98 05/16/24 15:00 140/84 05/16/24 15:00 74 18 98 05/16/24 14:00 150/74 05/17/24 07:00 05/17/24 04:00 98.2 F 111 H 16 122/59 98 05/17/24 01:25 98 F 77 15 165/97 100 05/16/24 20:00 98.1 F 65 13 136/77 99 05/16/24 19:00 05/16/24 16:00 98.2 F 72 16 138/81 98 05/16/24 07:00 05/16/24 12:00 98.2 F 76 18 117/78 100 05/16/24 08:00 97.1 F L 75 21 162/88 100 05/16/24 06:51 76 14 100 05/16/24 06:51 158/72 05/16/24 06:40 162/90 05/16/24 06:40 75 12 100 05/16/24 06:30 172/107 05/16/24 06:30 75 17 99 05/16/24 06:21 180/103 05/16/24 06:21 75 17 99 05/16/24 06:11 114/81 05/16/24 06:11 72 22 99 05/16/24 06:01 152/102 05/16/24 06:01 72 20 99 05/16/24 06:00 72 21 100 05/16/24 05:57 179/107 05/16/24 05:57 71 16 98 05/16/24 05:31 123/91 05/16/24 05:31 120 H 22 98 05/16/24 05:26 125 H 19 99 05/16/24 05:26 183/136 05/16/24 05:00 125 H 15 99 05/16/24 04:36 135 H 05/16/24 04:40 97.6 F 05/16/24 04:01 213/114 05/16/24 04:01 96 H 18 99 05/16/24 03:01 96 H 18 99 05/16/24 03:00 93 H 20 99 05/16/24 02:28 213/116 02/28/25 02:28 96 H 18 99 05/16/24 01:00 172/114 05/16/24 01:00 86 12 99 05/16/24 00:00 98.0 F 05/16/24 00:00 168/111 05/16/24 00:00 90 12 99 05/15/24 23:00 159/109 05/15/24 23:00 130 H 16 99 05/15/24 22:00 117 H 14 100 05/15/24 22:00 169/107 05/15/24 21:00 120 H 13 100 05/15/24 21:00 170/114 05/15/24 20:15 05/15/24 20:00 113 H 16 05/15/24 19:46 116 H 14 05/15/24 19:45 116 H 18 05/15/24 19:30 158/108 05/15/24 19:30 112 H 23 100 05/15/24 19:15 113 H 15 100 05/15/24 19:15 150/106 05/15/24 19:00 123 H 20 05/15/24 19:00 146/111 05/15/24 18:45 117 H 15 05/15/24 18:45 168/116 05/15/24 20:27 113 H 16 162/102 100 05/15/24 18:30 117 H 16 05/15/24 18:30 152/114 05/15/24 18:15 82 12 05/15/24 18:15 187/111 05/15/24 18:00 168/99 05/15/24 18:00 128 H 21 05/15/24 17:51 113 H 17 99 05/15/24 17:51 173/108 05/15/24 17:46 117 H 16 05/15/24 17:46 174/122 05/15/24 17:45 114 H 17 05/15/24 17:30 119 H 19 05/15/24 17:15 113 H 25 H 05/15/24 17:15 179/104 05/15/24 17:00 110 H 17 05/15/24 17:00 179/116 05/15/24 16:45 118 H 15 05/15/24 16:45 165/122 05/15/24 16:30 85 20 05/15/24 16:30 170/99 05/15/24 16:15 79 17 05/15/24 16:15 176/100 05/15/24 16:00 169/130 05/15/24 16:00 104 H 17 05/15/24 15:45 81 17 05/15/24 15:45 151/107 05/15/24 15:30 172/99 05/15/24 15:30 86 20 05/15/24 15:16 90 15 99 05/15/24 15:16 162/104 05/15/24 15:15 114 H 16 100 05/15/24 15:01 117 H 15 05/15/24 15:01 180/123 05/15/24 15:00 116 H 21 05/15/24 14:45 114 H 20 05/15/24 14:45 162/117 05/15/24 14:30 113 H 20 05/15/24 14:30 149/102 05/15/24 14:15 113 H 13 05/15/24 14:15 140/85 O2 Del Method O2 Flow Rate 05/18/24 12:00 05/18/24 12:00 05/18/24 11:00 05/18/24 11:00 05/18/24 10:14 05/18/24 10:14 05/18/24 10:02 05/18/24 10:02 05/18/24 10:00 05/18/24 10:00 05/18/24 09:00 05/18/24 09:00 05/18/24 08:00 05/18/24 08:00 05/18/24 07:00 05/18/24 07:00 05/18/24 06:00 05/18/24 06:00 05/18/24 05:00 05/18/24 05:00 05/18/24 04:06 05/18/24 04:06 05/18/24 04:03 05/18/24 04:03 05/18/24 04:01 05/18/24 04:01 05/18/24 04:00 05/18/24 04:00 05/18/24 03:05 05/18/24 03:05 05/18/24 03:00 05/18/24 03:00 05/18/24 02:00 05/18/24 02:00 05/18/24 01:00 05/18/24 01:00 05/18/24 00:54 05/18/24 00:54 05/18/24 00:49 05/18/24 00:49 05/18/24 00:00 05/18/24 00:00 05/17/24 23:08 05/17/24 23:08 05/17/24 23:08 05/17/24 23:00 05/17/24 22:00 05/17/24 22:00 05/17/24 21:01 05/17/24 21:01 05/17/24 21:00 05/17/24 20:00 05/17/24 20:00 05/17/24 19:00 05/18/24 07:00 Room Air 05/18/24 04:00 Nasal Cannula 2 05/18/24 00:01 05/18/24 00:00 Nasal Cannula 2 05/17/24 20:00 Nasal Cannula 2 05/17/24 19:00 Nasal Cannula 2 05/17/24 23:31 05/17/24 16:00 05/17/24 16:00 05/17/24 15:00 05/17/24 15:00 05/17/24 14:05 05/17/24 14:05 05/17/24 14:02 05/17/24 14:01 05/17/24 14:00 05/17/24 13:01 05/17/24 13:01 05/17/24 13:00 05/17/24 12:07 05/17/24 12:07 05/17/24 12:00 05/17/24 11:05 05/17/24 11:05 05/17/24 11:00 05/17/24 10:38 05/17/24 10:38 05/17/24 10:01 05/17/24 10:01 05/17/24 10:00 05/17/24 09:01 05/17/24 09:01 05/17/24 09:00 05/17/24 08:00 05/17/24 08:00 05/17/24 07:00 05/17/24 07:00 05/17/24 06:00 05/17/24 06:00 05/17/24 05:01 05/17/24 05:01 05/17/24 05:00 05/17/24 04:00 05/17/24 04:00 05/17/24 03:04 05/17/24 03:04 05/17/24 03:00 05/17/24 02:01 05/17/24 02:01 05/17/24 02:01 05/17/24 02:01 05/17/24 02:00 05/17/24 01:25 05/17/24 01:25 05/17/24 01:00 05/17/24 01:00 05/17/24 00:00 05/17/24 00:00 05/16/24 23:00 05/16/24 23:00 05/16/24 22:00 05/16/24 22:00 05/16/24 21:00 05/16/24 21:00 05/16/24 20:00 05/16/24 20:00 05/16/24 19:00 05/16/24 19:00 05/16/24 18:00 05/16/24 18:00 05/16/24 17:00 05/16/24 17:00 05/16/24 16:00 05/16/24 16:00 05/16/24 15:00 05/16/24 15:00 05/16/24 14:00 05/17/24 07:00 Room Air 05/17/24 04:00 Room Air 05/17/24 01:25 Room Air 05/16/24 20:00 Room Air 05/16/24 19:00 Room Air 05/16/24 16:00 Room Air 05/16/24 07:00 Room Air 05/16/24 12:00 Room Air 05/16/24 08:00 Room Air 05/16/24 06:51 05/16/24 06:51 05/16/24 06:40 05/16/24 06:40 05/16/24 06:30 05/16/24 06:30 05/16/24 06:21 05/16/24 06:21 05/16/24 06:11 05/16/24 06:11 05/16/24 06:01 05/16/24 06:01 05/16/24 06:00 05/16/24 05:57 05/16/24 05:57 05/16/24 05:31 05/16/24 05:31 05/16/24 05:26 05/16/24 05:26 05/16/24 05:00 05/16/24 04:36 05/16/24 04:40 05/16/24 04:01 05/16/24 04:01 05/16/24 03:01 05/16/24 03:00 05/16/24 02:28 05/16/24 02:28 05/16/24 01:00 05/16/24 01:00 Room Air 05/16/24 00:00 05/16/24 00:00 05/16/24 00:00 05/15/24 23:00 05/15/24 23:00 Room Air 05/15/24 22:00 Room Air 05/15/24 22:00 05/15/24 21:00 Room Air 05/15/24 21:00 05/15/24 20:15 Room Air 05/15/24 20:00 05/15/24 19:46 05/15/24 19:45 05/15/24 19:30 05/15/24 19:30 05/15/24 19:15 05/15/24 19:15 05/15/24 19:00 05/15/24 19:00 05/15/24 18:45 05/15/24 18:45 05/15/24 20:27 Room Air 05/15/24 18:30 05/15/24 18:30 05/15/24 18:15 05/15/24 18:15 05/15/24 18:00 05/15/24 18:00 05/15/24 17:51 05/15/24 17:51 05/15/24 17:46 05/15/24 17:46 05/15/24 17:45 05/15/24 17:30 05/15/24 17:15 05/15/24 17:15 05/15/24 17:00 05/15/24 17:00 05/15/24 16:45 05/15/24 16:45 05/15/24 16:30 05/15/24 16:30 05/15/24 16:15 05/15/24 16:15 05/15/24 16:00 05/15/24 16:00 05/15/24 15:45 05/15/24 15:45 05/15/24 15:30 05/15/24 15:30 05/15/24 15:16 05/15/24 15:16 05/15/24 15:15 05/15/24 15:01 05/15/24 15:01 05/15/24 15:00 05/15/24 14:45 05/15/24 14:45 05/15/24 14:30 05/15/24 14:30 05/15/24 14:15 05/15/24 14:15 Medical Decision Making 05/18/24 04:05 05/18/24 04:05 Labs: Laboratory Results - last 24 hr 05/18/24 04:05 WBC 4.5 RBC 3.92 L Hgb 11.3 L Hct 34.7 L MCV 88.6 MCH 28.8 MCHC 32.6 L RDW 24.3 H Plt Count 112 L Plt Count Comment Decreased MPV 9.6 Neut % (Auto) 56.1 Lymph % (Auto) 22.8 Barron % (Auto) 18.3 H Eos % (Auto) 2.0 Baso % (Auto) 0.8 Neut # (Auto) 2.5 Lymph # (Auto) 1.0 L Barron # (Auto) 0.8 Eos # (Auto) 0.1 Baso # (Auto) 0.0 Absolute Nucleated RBC 0.2 Plt Morphology Comment Normal RBC Morphology Abnormal Anisocytosis 3+ A Williams Cells Present Schistocytes Present Sodium 140 Corrected Sodium TNP Potassium 3.4 L Chloride 110 H Carbon Dioxide 21.7 BUN 15 Creatinine 1.21 Est GFR (MDRD) Af Amer > 60 Est GFR (MDRD) Non-Af > 60 Glucose 78 Calcium 6.9 L Corrected Calcium 8.9 Total Bilirubin 0.40 AST 37 ALT 13 Alkaline Phosphatase 79 Total Protein 6.2 L Albumin 1.5 L Globulin 4.7 H Albumin/Globulin Ratio 0.3 L CC/HPI CC/HPI Chief Complaint: [facility] Tele[facility]rology Consult Services Stat Consult Patient Name: Cade Cabral Date of : 1955 Identification Number: Date of Service: 05/18/2024 12:38:14 Diagnosis: G93.49 - Encephalopathy Multifactorial R47.01 - Aphasia M62.81 - Generalized Muscle Weakness Impression 68 yr old man Hx: Laryngeal CA, HTN, PAD, cardiac stent admitted with progressive mental cognition decline, not able to communicate well, aphasia. is at bedside, reports started slowly but progressed about 2 weeks ago, decreased alertness, and difficulty speaking. He has R leg circulation issue, and currently arousable, but intermittently follows commands, R leg is weak, and both arms are weak. No speech outpt, he is hard of hearing. NIH 13. CT 05/15 and toay 05/18- atrophy advanced ischemic changes, per radiology, images not available to me. Diff Dx: decompensating cognitive disorder, r/o CVA, encephalopathy. other. His has a card with cardiac stent info, I would recommend letting library technician look at this to see if he is MRI compatible, Recommendations: Our recommendations are outlined below. Nursing Recommendations : Continue with Telemetry Consultations : Recommend Speech therapy if failed dysphagia screen Physical therapy/Occupational therapy DVT Prophylaxis : Choice of Primary Team Dispositions : Neurology will follow Miscellaneous : - If stents compatible, MRI brain, - Check TSH, B12, folate, ESR. So far, ammonia is normal. - if no metabolic encephalopathy source found, then rec LP for cell counts, protein, glucose, csf 14-3-3 protein, encephalitis panel, HSV PCR - EEG if available - Neuro fup d/w pt, , family , RN dw attending Dr Vega all the recs. Advanced Imaging: Advanced Imaging Deferred because: done and no LVO Metrics: Dispatch Time: 05/18/2024 12:38:14 Callback Response Time: 05/18/2024 12:40:00 Primary Provider Notified of Diagnostic Impression and Management Plan on: 05/18/2024 14:03:54 CT HEAD: As Per Radiologist CT Head Showed No Acute Hemorrhage or Acute Core Infarct Image Unavailable - Discussed with Radiologist / Reviewed Radiology Report per radiology atrophy, advanced chronic ischemic changes. Chief Complaint: unresponsive History of Present Illness: Patient is a 68 year old Male. 68 yr old man Hx: Laryngeal CA, HTN, PAD, cardiac stent admitted with progressive mental cognition decline, not able to communicate well, aphasia. is at bedside, reports started slowly about 2 weeks ago, decreased alertness, and difficulty speaking. He has R leg circulation issue, and currently arousable, but intermittently follows commands, R leg is weak, and both arms are weak. No speech outpt, he is hard of hearing. NIH 13. Past Medical History: Hypertension Hyperlipidemia Other PMH: PAD Medications: No Anticoagulant use Antiplatelet use: Yes asa, plavix Reviewed EMR for current medications Allergies: Reviewed Social History: Smoking: Former Family History: There is no family history of premature cerebrovascular disease pertinent to this consultation ROS : 14 Points Review of Systems was performed and was negative except mentioned in HPI. Past Surgical History: There Is No Surgical History Contributory To Todays Visit Examination: BP(115/73), Pulse(64), 1A: Level of Consciousness - Arouses to minor stimulation + 1 1B: Ask Month and Age - Aphasic + 2 1C: Blink Eyes & Squeeze Hands - Performs 1 Task + 1 2: Test Horizontal Extraocular Movements - Normal + 0 3: Test Visual Handy - No Visual Loss + 0 4: Test Facial Palsy (Use Grimace if Obtunded) - Normal symmetry + 0 5A: Test Left Arm Motor Drift - Drift, but doesn't hit bed + 1 5B: Test Right Arm Motor Drift - Drift, but doesn't hit bed + 1 6A: Test Left Leg Motor Drift - No Drift for 5 Seconds + 0 6B: Test Right Leg Motor Drift - No Effort Against Stanton + 3 7: Test Limb Ataxia (FNF/Heel-Roper) - Does Not Understand + 0 8: Test Sensation - Mild-Moderate Loss: Less Sharp/More Dull + 1 9: Test Language/Aphasia - Mute/Global Aphasia: No Usable Speech/Auditory Comprehension + 3 10: Test Dysarthria - Intubated/Unable to Test + 0 11: Test Extinction/Inattention - No abnormality + 0 NIHSS Score: 13 NIHSS Free Text : R leg surgery Spoke with : Dr Vega attending This consult was conducted in real time using interactive audio and video technology. Patient was informed of the technology being used for this visit and agreed to proceed. Patient located in hospital and provider located at home/office setting. Patient is being evaluated for possible acute neurologic impairment and high probability of imminent or life - threatening deterioration.I spent total of 35 minutes providing care to this patient, including time for face to face visit via telemedicine, review of medical records, imaging studies and discussion of findings with providers, the patient and / or family. Dr Adilene [facility]aton [facility] For Inpatient follow-up with [facility] physician please call [facility] at . As we are not an outpatient service for any post hospital discharge needs please contact the hospital for assistance. If you have any questions for the [facility] physicians or need to reconsult for clinical or diagnostic changes please contact us via [facility] at [phone].
--- NOTE | 2024-05-18 17:06 | DR.OPNOTE ---
OP NOTE Pre-Op Diagnosis: No IV access Post-Op Diagnosis: Same Procedure Date Date Of Procedure: 05/15/24 Procedure: Procedure: Left subclavian central line Narrative: The patient was placed in Trendelenburg position. The left neck and left chest prepped and draped in sterile fashion. The skin overlying the left clavicle infiltrated with 0.5% Marcaine. 16-gauge needle used to puncture the left subclavian vein with good return of blood and placement of a 0.035 inch guidewire. Incision made over the guidewire at the skin edge with a #11 knife blade and the dilator placed over the guidewire into the left subclavian vein. Dilator removed and the triple-lumen catheter placed over this to a depth of 18 cm. Guidewire removed. All ports were aspirated of blood and flushed with heparinized saline. The catheter secured to the skin with interrupted silk sutures. Dressing applied with an antibiotic microbial patch around the entrance to the skin. Postprocedure chest x-ray showed good placement of the catheter with no pneumothorax. Type of Anesthesia: Local (1% Xylocaine) Findings: Left subclavian central line placed. Postprocedure chest x-ray showed good placement and no pneumothorax EBL: Minimal Complications:: None Needle/Sponge Count:: Correct Disposition/Condition: Pt. tolerated procedure without difficulty.
--- NOTE | 2024-05-18 17:37 | CT ---
EXAMINATION:PELVIS W/O CONHISTORY:ALTERED MENTAL STATUS;, ABDOMINAL PAIN.COMPARISON STUDY:None.TECHNIQUE:Contiguous noncontrast axial CT images of the pelvis. Images reviewed in the axial imaging plane with reformatted sagittal and coronal images.FINDINGS:Moderate distention of the urinary bladder with dense material presumed to be excreted contrast which should be closely correlated with medical records. There is slight diffuse thickening of the cross of the urinary bladder. The prostate gland is enlarged encroaching on the base of the urinary bladder measuring 3.5 cm diameter. Bladder wall thickening along the posteroinferior aspect of the urinary bladder can not be ruled out. Seminal vesicles are normal size.No pelvic adenopathy. 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 The hip joints are uniformly maintained. Mixed bony sclerotic changes within the iliac bones along both SI joints.Severe irregular disc space narrowing at the lumbosacral junction with anterolisthesis grade 1 and bilateral pars interarticularis defects presumed congenital.IMPRESSION:Nonspecific slight diffuse thickening of the cross of the urinary bladder, enlarged prostate gland encroaching on the base of the urinary bladder. Please refer to the above discussion.Trace ascites dependent pelvis.No pelvic adenopathy.Other incidental findings as discussed above.THIS IS AN ELECTRONICALLY VERIFIED FINAL REPORT05/18/2024 5:34 PM - Electronically signed by Anu Marie MD
--- NOTE | 2024-05-18 22:03 | RAD ---
EXAMINATION:ACUTE ABDOMEN SERI ESHISTORY:right sided fecal retention; .COMPARISON STUDY:Chest x-ray 10/2019TECHNIQUE:Single frontal view of the chest and two views of the abdomen frontal supine and upright projectionsFINDINGS:Lungs are expanded. Patchy alveolar infiltrates scattered in both lungs. Mild cardiac silhouette enlargement. Left-sided central venous access catheter with distal catheter along the SVC/right pulmonary hilum.Mild gaseous distention of the colon. Soft tissue outlines and osseous structures appear intact.IMPRESSION:Patchy alveolar infiltrates in both lungs.Cardiac silhouette enlargement.Mild amount of bowel-gas colonTHIS IS AN ELECTRONICALLY VERIFIED FINAL REPORT05/18/2024 9:59 PM - Electronically signed by Anu Marie MD
[2024-05-19 05:15] LABS: BASOPHILS % (AUTO) 0.6 % (0.2-1.0); EOSINOPHILS # (AUTO) 0.1 x10^3/uL (0.0-0.2); EOSINOPHILS % (AUTO) 2.7 % (0.9-2.9); HEMOGLOBIN 11.1 g/dL (13.5-18.0); LYMPHOCYTES # (AUTO) 0.9 X10^3/uL (1.3-2.9); LYMPHOCYTES % (AUTO) 24.3 % (21.0-51.0); MEAN CORPUSCULAR HEMOGLOBIN 28.8 pg (27.0-34.0); MEAN CORPUSCULAR HGB CONC 32.6 g/dL (33.0-35.0); MEAN CORPUSCULAR VOLUME 88.3 fL (80.0-100.0); MEAN PLATELET VOLUME 10.2 fL (7.4-11.0); MONOCYTES # (AUTO) 0.6 x10^3/uL (0.3-0.8); NEUTROPHILS # (AUTO) 2.2 x10^3/uL (2.2-4.8); NEUTROPHILS % (AUTO) 56.4 % (42.0-75.0); PLATELET COUNT 117 X10^3/uL (150.0-450.0); RED BLOOD COUNT 3.85 X10^6/uL (4.7-6.0); RED CELL DISTRIBUTION WIDTH 24.9 % (11.6-16.5); WHITE BLOOD COUNT 3.9 X10^3/uL (3.6-10.0)
[2024-05-19 05:29] LABS: ALANINE AMINOTRANSFERASE 11 Units/L (12-78); ALBUMIN 1.3 g/dL (3.4-5.0); ALKALINE PHOSPHATASE 88 Units/L (46-116); ASPARTATE AMINO TRANSFERASE 30 Units/L (15-37); BLOOD UREA NITROGEN 14 mg/dL (7-18); CALCIUM 6.5 mg/dL (8.5-10.1); CARBON DIOXIDE 20.4 mmol/L (21-32); CHLORIDE 111 mmol/L (98-107); COR CA(FOR HYPOALB) 8.7 mg/dL (8.5-10.1); CREATININE 1.18 mg/dL (0.70-1.30); GLUCOSE 93 mg/dL (65-99); POTASSIUM 3.1 mmol/L (3.5-5.1); SODIUM 140 mmol/L (136-145); TOTAL PROTEIN 5.6 g/dL (6.4-8.2); eGFR NON BLACK RACES > 60 (>60)
[2024-05-19 05:31] LABS: ANISOCYTOSIS 3+; BURR CELLS PRESENT; PLATELET MORPHOLOGY COMMENT NORMAL (NORMAL); SCHISTOCYTES PRESENT
[2024-05-19] MEDS: MICARDIS PO SCH (08:46)
[2024-05-19] MEDS: NS + KCL 20 MEQ/L 1,000 ML with MAGNESIUM SULFATE 50% INJ VIAL 1 G IV SCH (08:47)
[2024-05-19] MEDS ORDERED: MAG-OX TAB PO SCH (09:00)
[2024-05-19] MEDS: FLOMAX PO SCH (09:50)
--- NOTE | 2024-05-19 10:47 | RAD ---
EXAM: ACUTE ABDOMEN SERI ES HISTORY: altered mental status, ABD PAIN; HLD, ESOPHAGEAL CANCER, THYROID CANCER SX: ANGIOPLASTY/STENTS, THYRO IDECTOMY, TRACH COMPARISON: [id number] FINDINGS: The cardiomediastinal silhouette is normal in size. The central venous catheter with tip overlying t he SVC. Chronic appearing interstitial changes in the lungs. No acute airspace disease. No pneumoth orax or effusion.No acute osseous abnormality in the thorax. Evaluation of the abdomen demonstrates a nonobstructive bowel gas pattern. no evidence of pneumoperit oneum. No pathologic soft tissue calcification. Residual contrast in the bladder lumen. No acute os seous abnormality in the abdomen. IMPRESSION: 1. No acute cardiopulmonary process. 2. No acute abdominal process. THIS IS AN ELECTRONICALLY VERIFIED FINAL REPORT 05/19/2024 10:42 AM - Electronically signed by Vasiliy Cabral MD
[2024-05-19] MEDS ORDERED: K-DUR TAB 20 MEQ PO SCH (11:00)
[2024-05-19 12:02] LABS: TSH (3RD GENERATION) 25.749 uIU/mL (0.358-3.74)
[2024-05-19 13:41] LABS: ABG BASE EXCESS -19.7 mmol/L (-2.0-2.0)
[2024-05-19 13:42] LABS: ABG ALLEN TEST POS; ABG HCO3 7.1 mmol/L (22-26)
[2024-05-19] MEDS: D5 NS 1,000 ML IV 1,000 ML IV SCH (14:13)
[2024-05-19] MEDS: D50W ABBOJECT SYR IV ONE (14:13)
[2024-05-19] MEDS: THIAMINE HCL INJ IVP ONE (14:13)
[2024-05-19] MEDS: D50W ABBOJECT SYR ONE (15:34)
[2024-05-19] MEDS: D5 NS 1,000 ML IV 1,000 ML IV ONE (15:34)
[2024-05-19] MEDS: THIAMINE HCL INJ ONE (15:34)
[2024-05-19] MEDS: CONSULT PHARMACY - POTASSIUM & MAGNESIUM XX SCH (15:36)
[2024-05-19 16:03] LABS: BILIRUBIN,URINE NEGATIVE (NEGATIVE); BLOOD/HEMOGLOBIN,URINE 2+ (NEGATIVE); GLUCOSE, URINE 1+ (NEGATIVE); KETONES,URINE NEGATIVE (NEGATIVE); LEUKOCYTE ESTERASE ,URINE NEGATIVE (NEGATIVE); NITRITES,URINE NEGATIVE (NEGATIVE); PROTEIN,URINE 3+ (NEGATIVE); UROBILINOGEN,URINE NORMAL (NORMAL)
[2024-05-19 16:22] LABS: APPEARANCE,URINE HAZY (CLEAR); COLOR,URINE YELLOW (YELLOW)
[2024-05-19 16:23] LABS: BACTERIA,URINE TRACE /HPF (NEGATIVE); HYALINE CASTS, URINE FEW /LPF (NEGATIVE); SQUAMOUS EPITHELIAL CELL,UR FEW /HPF (NEGATIVE)
[2024-05-19] MEDS: D5 NS + KCL 20 MEQ/L 1,000 ML with MAGNESIUM SULFATE 50% INJ VIAL 1 G IV SCH (17:49)
[2024-05-19] MEDS: HIBICLENS WASH EXT ONE (22:09)
--- NOTE | 2024-05-19 23:30 | NOTE.SOAP ---
Soap Note Note for Day of Date of Exam: 05/19/24 Subjective Data Subjective Data: Patient mental status is improved. Noted to have significant ischemic problems of the left leg as well. Right leg is already had intervention. Currently applying Santyl to the eschar of the right great toe plantar surface Objective Data Temperature: 96.9 F Pulse Rate: 58 Respiratory Rate: 16 Blood Pressure: 151/90 O2 Sat by Pulse Oximetry: 100 Objective Data: Patient taking a diet by mouth. He recognizes family. Eschar to the plantar right great toe measures 3 x 2.5 and is currently having Santyl applied to it. Left foot is cool. 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 Assessment Assessment: 1). Change in mental status improving. Etiology not definite. 2) evidence of severe ischemia of the left leg with superficial femoral artery occlusion. Plan Plan: Plan arterial intervention of the left leg tomorrow in pleural-based fashion. Family understands and agrees to proceed.
[2024-05-20 05:26] LABS: BASOPHILS % (AUTO) 0.6 % (0.2-1.0); EOSINOPHILS # (AUTO) 0.1 x10^3/uL (0.0-0.2); EOSINOPHILS % (AUTO) 2.2 % (0.9-2.9); HEMATOCRIT 32.1 % (42.0-54.0); HEMOGLOBIN 10.6 g/dL (13.5-18.0); LYMPHOCYTES % (AUTO) 25.3 % (21.0-51.0); MEAN CORPUSCULAR HEMOGLOBIN 29.2 pg (27.0-34.0); MEAN CORPUSCULAR VOLUME 88.4 fL (80.0-100.0); MEAN PLATELET VOLUME 10.1 fL (7.4-11.0); MONOCYTES # (AUTO) 0.6 x10^3/uL (0.3-0.8); MONOCYTES % (AUTO) 15.5 % (0.0-13.0); NEUTROPHILS # (AUTO) 2.3 x10^3/uL (2.2-4.8); NEUTROPHILS % (AUTO) 56.4 % (42.0-75.0); PLATELET COUNT 108 X10^3/uL (150.0-450.0); RED BLOOD COUNT 3.63 X10^6/uL (4.7-6.0); RED CELL DISTRIBUTION WIDTH 25.7 % (11.6-16.5); WHITE BLOOD COUNT 4.1 X10^3/uL (3.6-10.0)
[2024-05-20 05:44] LABS: ALANINE AMINOTRANSFERASE 17 Units/L (12-78); ALBUMIN 1.3 g/dL (3.4-5.0); ALKALINE PHOSPHATASE 155 Units/L (46-116); ASPARTATE AMINO TRANSFERASE 48 Units/L (15-37); BLOOD UREA NITROGEN 11 mg/dL (7-18); CALCIUM 6.3 mg/dL (8.5-10.1); CARBON DIOXIDE 18.9 mmol/L (21-32); CHLORIDE 112 mmol/L (98-107); COR CA(FOR HYPOALB) 8.5 mg/dL (8.5-10.1); COR NA(FOR HYPERGLY) 140 mmol/L (136-145); CREATININE 1.13 mg/dL (0.70-1.30); GLUCOSE 114 mg/dL (65-99); MAGNESIUM 1.9 mg/dL (2.0-2.9); POTASSIUM 3.5 mmol/L (3.5-5.1); SODIUM 140 mmol/L (136-145); TOTAL PROTEIN 5.7 g/dL (6.4-8.2); eGFR NON BLACK RACES > 60 (>60)
[2024-05-20 06:06] LABS: ANISOCYTOSIS 3+; BURR CELLS PRESENT; PLATELET MORPHOLOGY COMMENT NORMAL (NORMAL); SCHISTOCYTES PRESENT; TARGET CELLS PRESENT
[2024-05-20] MEDS ORDERED: CONSULT PHARMACY - POTASSIUM & MAGNESIUM XX SCH (07:00)
[2024-05-20] MEDS ORDERED: MAGNESIUM SULFATE 1 GRAM/100 mL PREMIX 1 G/100 ML BAG IV SCH (08:00)
[2024-05-20 08:51] LABS: ABG BASE EXCESS -7.2 mmol/L (-2.0-2.0)
[2024-05-20 08:52] LABS: ABG ALLEN TEST POS; ABG HCO3 15.6 mmol/L (22-26)
[2024-05-20] MEDS: LR 1,000 ML IV 1,000 ML IV ONE (08:55)
[2024-05-20] MEDS: NS 100 ML IV 100 ML ONE (09:11)
[2024-05-20] MEDS: ANCEF VIAL 1 GRAM ONE (09:11)
[2024-05-20] MEDS ORDERED: PRECEDEX INJ VIAL ONE (09:20)
[2024-05-20] MEDS ORDERED: KETAMINE HCL ONE (09:20)
[2024-05-20] MEDS: KETAMINE HCL IV PRN (09:30)
[2024-05-20] MEDS: VISIPAQUE 100 ML ONE (09:41)
[2024-05-20] MEDS: HEPARIN 1,000 UNIT/500 ML-NS 1,000 UNIT/500 ML IV.SOLN ONE (09:41)
[2024-05-20] MEDS: VISIPAQUE 50 ML ONE ×2 (09:41→11:49)
[2024-05-20] MEDS: MARCAINE 0.5% ONE (09:41)
[2024-05-20] MEDS: HEPARIN 1000 UNIT/500 ML ONE (09:54)
[2024-05-20] MEDS: [UNRECOGNIZED DRUG - OTHER] ONE (09:54)
[2024-05-20] MEDS ORDERED: K-RIDER 10 MEQ/100 ML WATER 10 MEQ/100 ML BAG IV SCH (10:00)
[2024-05-20] MEDS ORDERED: NS 1,000 ML IV 1,000 ML ONE (12:47)
[2024-05-20] MEDS: NS 1,000 ML IV 1,000 ML IV ONE (12:47)
--- NOTE | 2024-05-20 12:58 | OR.IMMED ---
IMMEDIATE POST-OP NOTE Immediate Post-Op Note Date of surgery/procedure: 05/20/24 Pre-Op Diagnosis: Critical ischemia left leg Post-Op Diagnosis: Same, see findings Procedure: Aortogram, arteriogram left leg, approach from the right groin and left posterior tibial artery, stenting of the entire right occluded superficial femoral artery Description of Procedure: dictated Surgeon/Skin Piler: Kaylin Findings: Complete occlusion of the left superficial femoral artery begining at the takeoff all the way to the popliteal artery. Three-vessel runoff of the l eft foot. After stenting patient had a persistent leak versus AV fistula of the distal left superficial artery despite multiple covered stents placement. This will be observed. Estimated Blood Loss: 100 cc Complications: none Progress Notes: Return to ICU. Continue Lovenox. Will need sequential laboratory values obtained and examination of the left leg
[2024-05-20 13:21] LABS: EOSINOPHILS # (AUTO) 0.1 x10^3/uL (0.0-0.2); EOSINOPHILS % (AUTO) 2.7 % (0.9-2.9); HEMATOCRIT 25.2 % (42.0-54.0); HEMOGLOBIN 8.3 g/dL (13.5-18.0); LYMPHOCYTES % (AUTO) 21.7 % (21.0-51.0); MEAN CORPUSCULAR HEMOGLOBIN 29.3 pg (27.0-34.0); MEAN CORPUSCULAR HGB CONC 33.1 g/dL (33.0-35.0); MEAN CORPUSCULAR VOLUME 88.5 fL (80.0-100.0); MEAN PLATELET VOLUME 9.8 fL (7.4-11.0); MONOCYTES # (AUTO) 0.7 x10^3/uL (0.3-0.8); MONOCYTES % (AUTO) 14.4 % (0.0-13.0); NEUTROPHILS # (AUTO) 2.8 x10^3/uL (2.2-4.8); NEUTROPHILS % (AUTO) 60.2 % (42.0-75.0); PLATELET COUNT 77 X10^3/uL (150.0-450.0); RED BLOOD COUNT 2.84 X10^6/uL (4.7-6.0); WHITE BLOOD COUNT 4.6 X10^3/uL (3.6-10.0)
[2024-05-20 13:47] LABS: ANISOCYTOSIS 3+; BURR CELLS PRESENT; PLATELET MORPHOLOGY COMMENT NORMAL (NORMAL); TARGET CELLS PRESENT
[2024-05-20 13:48] LABS: SCHISTOCYTES PRESENT
[2024-05-20] MEDS: MICARDIS PO SCH (14:28)
[2024-05-20] MEDS: DIPRIVAN VIAL 20 ML ONE ×2 (14:28→14:30)
[2024-05-20] MEDS: REGLAN INJ 10 MG VIAL ONE (14:29)
[2024-05-20] MEDS: ZOFRAN INJ 4 MG VIAL ONE (14:29)
[2024-05-20] MEDS: EPHEDRINE SULFATE INJ ONE (14:29)
[2024-05-20] MEDS: VERSED ONE (14:29)
[2024-05-20] MEDS: PEPCID 20 MG VIAL ONE (14:29)
[2024-05-20] MEDS: NEO-SYNEPHRINE INJ ONE (14:30)
[2024-05-20] MEDS: HEPARIN SODIUM INJ 5000 UNITS ONE (14:30)
[2024-05-20] MEDS: TORADOL 30 MG VIAL ONE (14:30)
[2024-05-21] MEDS: MICARDIS PO SCH (08:20)
[2024-05-21 09:20] LABS: BASOPHILS % (AUTO) 0.6 % (0.2-1.0); EOSINOPHILS # (AUTO) 0.1 x10^3/uL (0.0-0.2); HEMATOCRIT 23.1 % (42.0-54.0); HEMOGLOBIN 7.7 g/dL (13.5-18.0); LYMPHOCYTES # (AUTO) 0.8 X10^3/uL (1.3-2.9); LYMPHOCYTES % (AUTO) 12.9 % (21.0-51.0); MEAN CORPUSCULAR HEMOGLOBIN 29.9 pg (27.0-34.0); MEAN CORPUSCULAR HGB CONC 33.2 g/dL (33.0-35.0); MEAN PLATELET VOLUME 9.7 fL (7.4-11.0); MONOCYTES # (AUTO) 0.8 x10^3/uL (0.3-0.8); MONOCYTES % (AUTO) 13.5 % (0.0-13.0); NEUTROPHILS # (AUTO) 4.4 x10^3/uL (2.2-4.8); PLATELET COUNT 76 X10^3/uL (150.0-450.0); RED BLOOD COUNT 2.57 X10^6/uL (4.7-6.0); WHITE BLOOD COUNT 6.2 X10^3/uL (3.6-10.0)
[2024-05-21 09:38] LABS: ALANINE AMINOTRANSFERASE 14 Units/L (12-78); ALBUMIN 1.4 g/dL (3.4-5.0); ALKALINE PHOSPHATASE 119 Units/L (46-116); ASPARTATE AMINO TRANSFERASE 40 Units/L (15-37); BLOOD UREA NITROGEN 10 mg/dL (7-18); CREATININE 1.21 mg/dL (0.70-1.30); GLUCOSE 129 mg/dL (65-99); TOTAL PROTEIN 5.4 g/dL (6.4-8.2); eGFR NON BLACK RACES > 60 (>60)
[2024-05-21 09:43] LABS: ANISOCYTOSIS 3+; PLATELET MORPHOLOGY COMMENT NORMAL (NORMAL)
[2024-05-21 09:44] LABS: SCHISTOCYTES PRESENT; TARGET CELLS SLIGHT
--- NOTE | 2024-05-21 09:45 | NOTE.SOAP ---
Soap Note Note for Day of Date of Exam: 05/21/24 Subjective Data Subjective Data: Postoperative day 1 after stenting of left superficial femoral artery. Patient confusion over this morning but is now resting comfortably. Left foot is warm. Hemoglobin 7.7. Objective Data Temperature: 97.0 F Pulse Rate: 87 Respiratory Rate: 18 Blood Pressure: 113/77 O2 Sat by Pulse Oximetry: 96 Objective Data: Left foot warm with good Doppler signals. Right foot warm as well. No evidence of swelling of the left medial thigh. Assessment Assessment: Status post left leg arterial intervention. Plan Plan: Observe, will check CBC in the morning.
[2024-05-21 09:46] LABS: BURR CELLS SLIGHT; CARBON DIOXIDE 15.3 mmol/L (21-32); CHLORIDE 113 mmol/L (98-107); COR NA(FOR HYPERGLY) 141 mmol/L (136-145); POTASSIUM 4.1 mmol/L (3.5-5.1); SODIUM 140 mmol/L (136-145)
[2024-05-21 09:54] LABS: COR CA(FOR HYPOALB) 8.1 mg/dL (8.5-10.1)
--- NOTE | 2024-05-21 11:43 | DR.OPNOTE ---
OP NOTE Pre-Op Diagnosis: Critical ischemia left leg Post-Op Diagnosis: Same Procedure Date Date Of Procedure: 05/20/24 Procedure: PROCEDURE: Diagnostic aortogram, diagnostic arteriogram left leg, stenting left superficial femoral artery, multiple stents used NARRATIVE: The patient was taken to the operative suite and placed in the supine position. The right groin and entire left leg were prepped and draped in sterile fashion. Patient was given intravenous sedation supervised by myself. Timeout for the procedure obtained. Ultrasound used to identify the femoral artery in the right groin and the skin overlying it infiltrated with 0.5% Aliya ine. Ultrasound used to guide puncture of the right femoral artery and a 0.012 inch guidewire placed. Incision made over the guidewire at the skin edge with a #11 knife blade and the micro sheath placed over the guidewire into the femoral artery. Small wire exchanged for a 0.035 inch Advantage Glidewire and the micro sheath exchanged for a 5 [place]kin[place] vascular sheath. Patient given 5000 units of intravenous heparin. Omni catheter placed over the guidewire into the aorta and power injector used to perform aortogram showing normal aorta and iliac artery. The Omni catheter was then used to direct the guidewire down the left common iliac artery to the distal left external iliac artery. The [place] catheter removed and over the guidewire the 5 [place]kin[place] sheath was exchanged for a 7 [place] Catpult Sheath which was parked left external iliac artery. [place] catheter and the 0.035 guidewire used to attemp to traverse the arteries of the left leg but was unsuccessful. The patient had very dense calcifications and plaque completely occluded left superficial femoral artery. Therefore we elected to obtain access from the ankle. The skin overlying the left posterior tibial artery was injected with 0.5% Marcaine. Ultrasound used to identify the left posterior tibial artery and ultrasound used to guide puncture of it and a 0.012 inch guidewire placed. Incision made over the guidewire with a number of a knife blade and a micro sheath placed over the guidewire into the artery. Arteriogram carried out through the sheath showing that we were indeed in the posterior tibial artery .We then exchanged the micro sheath for a 6 Burkinan vascular sheath and placed the wire all the way to the popliteal artery. Arteriogram showed the popliteal artery and three-vessel runoff to be patent. The [place] catheter and 0.035 inch wire used to traverse the entire left superficial artery all the way into the iliac artery and repeat arteriogram showed that we were indeed in the chilkoot vessel of the iliac artery. This was selective catheterization. We attempted to place a stent but this was unsuccessful, therefore we predilated the entire left superficial femoral artery with a 4 mm [place] balloon. Once this was done we then placed an Jesica 6 mm x [address] to the takeoff of the left superficial artery and deployed. We then deployed an additional 6 mm x 150 mm Jesica stent and a 6mmx 80 mm Jesica stent to cover the entire superficial artery to the patent popliteal artery. These all had3 mm overlap and then we dilated them with a 6 mm [place] balloon. Repeat arteriogram still showed evidence of possible extravasation at the site of very dense calcification in the distal left superficial femoral artery. We used 4 different [place] stents to cover th e entire left superficial artery previously stented with the Jesica stents. Repeat arteriogram still showed some abnormal flow which I believed to be a small AV fistula. Hopefully this will resolve on its own. Sheath in the right femoral artery exchanged for Angio-Seal device used to close the puncture of the femoral artery. Tibial band used to compress the puncture of the left posterior tibial artery and the sheath removed. Patient remained stable during the case was taken back to the critical care unit for continued recovery. Type of Anesthesia: Local (0.5% Marcaine) Anesthesia Comment: Plus MAC Findings: Complete total occlusion of entire right superficial femoral artery from its takeoff to the popliteal artery at the adductor canal Type of Fluids Used:: Lactated Ringers Total Amount of Fluid Infused:: 700cc Urine output: 500 cc EBL: 100 cc Hardware: Multiple Jesica stents, multiple [place] Vi[place]ahn covered stents, placed in the left superficial femoral artery Complications:: none Needle/Sponge Count:: correct Disposition/Condition: Pt. tolerated procedure without difficulty. Taken to CCU in stable condition.
[2024-05-21] MEDS: FOLIC ACID TAB 1 MG PO SCH (11:59)
[2024-05-22 05:09] LABS: BASOPHILS % (AUTO) 0.5 % (0.2-1.0); EOSINOPHILS # (AUTO) 0.1 x10^3/uL (0.0-0.2); EOSINOPHILS % (AUTO) 0.7 % (0.9-2.9); HEMATOCRIT 26.2 % (42.0-54.0); HEMOGLOBIN 8.1 g/dL (13.5-18.0); LYMPHOCYTES % (AUTO) 10.9 % (21.0-51.0); MEAN CORPUSCULAR HEMOGLOBIN 28.5 pg (27.0-34.0); MEAN CORPUSCULAR HGB CONC 30.8 g/dL (33.0-35.0); MEAN CORPUSCULAR VOLUME 92.7 fL (80.0-100.0); MEAN PLATELET VOLUME 10.7 fL (7.4-11.0); MONOCYTES # (AUTO) 1.5 x10^3/uL (0.3-0.8); MONOCYTES % (AUTO) 16.8 % (0.0-13.0); NEUTROPHILS # (AUTO) 6.4 x10^3/uL (2.2-4.8); NEUTROPHILS % (AUTO) 71.1 % (42.0-75.0); PLATELET COUNT 83 X10^3/uL (150.0-450.0); RED BLOOD COUNT 2.83 X10^6/uL (4.7-6.0)
[2024-05-22] MEDS: SYNTHROID 125 mcg TAB PO SCH (05:44)
[2024-05-22 05:45] LABS: ANISOCYTOSIS 3+; BURR CELLS PRESENT; PLATELET MORPHOLOGY COMMENT NORMAL (NORMAL); SCHISTOCYTES PRESENT; TARGET CELLS PRESENT
[2024-05-22 06:39] LABS: ALANINE AMINOTRANSFERASE 14 Units/L (12-78); ALBUMIN 1.2 g/dL (3.4-5.0); ALKALINE PHOSPHATASE 122 Units/L (46-116); ASPARTATE AMINO TRANSFERASE 59 Units/L (15-37); BLOOD UREA NITROGEN 10 mg/dL (7-18); CARBON DIOXIDE 16.3 mmol/L (21-32); COR CA(FOR HYPOALB) 8.1 mg/dL (8.5-10.1); COR NA(FOR HYPERGLY) 141 mmol/L (136-145); CREATININE 1.04 mg/dL (0.70-1.30); GLUCOSE 117 mg/dL (65-99); POTASSIUM 4.7 mmol/L (3.5-5.1); SODIUM 141 mmol/L (136-145); TOTAL PROTEIN 5.2 g/dL (6.4-8.2); eGFR NON BLACK RACES > 60 (>60)
[2024-05-22 06:53] LABS: CALCIUM 5.9 mg/dL (8.5-10.1); CHLORIDE 115 mmol/L (98-107)
--- NOTE | 2024-05-22 16:13 | NOTE.SOAP ---
Soap Note Note for Day of Date of Exam: 05/22/24 Subjective Data Subjective Data: Postoperative day #2 after revascularization of the left leg. Patient's mental status is improved but he is still somewhat confused. Legs appear to be doing well. Hemoglobin is stable at 8.1 g. Objective Data Temperature: 97.8 F Pulse Rate: 63 Respiratory Rate: 15 Blood Pressure: 127/65 O2 Sat by Pulse Oximetry: 100 Objective Data: Left leg warm. Medial thigh is not swollen. Excellent biphasic Doppler signals at both posterior tibial and dorsalis pedis on the left and on the right. Assessment Assessment: Status post revascularization of the left leg. Plan Plan: Evaporation of his legs is doing well. I explained the family that the determining factor of his overall prognosis is going to be his mental status. That is being cared for by the inpatient hospital service.
[2024-05-22] MEDS: LASIX IVP ONE (23:25)
[2024-05-23 06:00] LABS: BASOPHILS # (AUTO) 0.1 X10^3/uL (0.0-0.1); BASOPHILS % (AUTO) 0.5 % (0.2-1.0); EOSINOPHILS # (AUTO) 0.1 x10^3/uL (0.0-0.2); EOSINOPHILS % (AUTO) 0.6 % (0.9-2.9); HEMATOCRIT 24.2 % (42.0-54.0); HEMOGLOBIN 7.9 g/dL (13.5-18.0); LYMPHOCYTES # (AUTO) 1.3 X10^3/uL (1.3-2.9); LYMPHOCYTES % (AUTO) 13.4 % (21.0-51.0); MEAN CORPUSCULAR HEMOGLOBIN 29.5 pg (27.0-34.0); MEAN CORPUSCULAR HGB CONC 32.7 g/dL (33.0-35.0); MEAN CORPUSCULAR VOLUME 90.3 fL (80.0-100.0); MEAN PLATELET VOLUME 10.8 fL (7.4-11.0); MONOCYTES # (AUTO) 1.3 x10^3/uL (0.3-0.8); MONOCYTES % (AUTO) 13.7 % (0.0-13.0); NEUTROPHILS # (AUTO) 7.1 x10^3/uL (2.2-4.8); NEUTROPHILS % (AUTO) 71.8 % (42.0-75.0); PLATELET COUNT 98 X10^3/uL (150.0-450.0); RED BLOOD COUNT 2.68 X10^6/uL (4.7-6.0); RED CELL DISTRIBUTION WIDTH 26.3 % (11.6-16.5); WHITE BLOOD COUNT 9.8 X10^3/uL (3.6-10.0)
[2024-05-23 06:12] LABS: ALANINE AMINOTRANSFERASE 14 Units/L (12-78); ALBUMIN 1.2 g/dL (3.4-5.0); ALKALINE PHOSPHATASE 136 Units/L (46-116); ASPARTATE AMINO TRANSFERASE 71 Units/L (15-37); BLOOD UREA NITROGEN 14 mg/dL (7-18); CALCIUM 6.3 mg/dL (8.5-10.1); CARBON DIOXIDE 20.4 mmol/L (21-32); COR CA(FOR HYPOALB) 8.5 mg/dL (8.5-10.1); CREATININE 1.09 mg/dL (0.70-1.30); GLUCOSE 97 mg/dL (65-99); POTASSIUM 4.7 mmol/L (3.5-5.1); SODIUM 144 mmol/L (136-145); TOTAL PROTEIN 5.6 g/dL (6.4-8.2); eGFR NON BLACK RACES > 60 (>60)
[2024-05-23 06:16] LABS: CHLORIDE 116 mmol/L (98-107)
[2024-05-23 06:30] LABS: ANISOCYTOSIS 3+; BURR CELLS SLIGHT; PLATELET MORPHOLOGY COMMENT NORMAL (NORMAL); POIKILOCYTOSIS 1+; SCHISTOCYTES SLIGHT; TARGET CELLS SLIGHT
[2024-05-23] MEDS: NS 1,000 ML IV 1,000 ML IV SCH (10:05)
--- NOTE | 2024-05-23 14:49 | VAS ---
EXAM:LOWER EXT VENOUS, BILATERALHISTORY:BLE EDEMA, R/O DVT;COMPARISON:None available.TECHNIQUE:Multiple diaz scale and color flow Doppler images of the deep venous system were obtained of the right and left lower extremity.FINDINGS:The deep venous system of the right and left lower extremities were evaluated from the level of the common femoral vein through the popliteal vein. Normal color flow and augmentation can be observed. In addition, normal compression is seen throughout the deep venous system.IMPRESSION:Negative for DVT.THIS IS AN ELECTRONICALLY VERIFIED FINAL REPORT05/23/2024 2:46 PM - Electronically signed by Rico Carrera MD
[2024-05-23] MEDS ORDERED: BUTT CREAM (COMPOUND) TOP PRN (20:33)
--- NOTE | 2024-05-23 21:24 | RAD ---
EXAM:CHEST, 1 VIEWHISTORY:PRODUCTIVE COUGH;COMPARISON:Frontal chest radiograph May 15, 2024TECHNIQUE:1 frontal view of the chestFINDINGS:There is a central venous catheter present with tip overlying superior vena cava. Heart silhouette is enlarged. The lungs demonstrate interstitial coarsening. There is mild pulmonary vascular congestion. No pneumothorax or lobar consolidation.IMPRESSION:Cardiomegaly with mild congestive changes.THIS IS AN ELECTRONICALLY VERIFIED FINAL REPORT05/23/2024 9:21 PM - Electronically signed by Samson Hernandez MD
[2024-05-23] MEDS ORDERED: LASIX IVP ONE (21:54)
[2024-05-23] MEDS ORDERED: NYSTATIN POWDER ONE (21:54)
[2024-05-23] MEDS: NYSTATIN POWDER TOP PRN (22:01)
[2024-05-23] MEDS: LASIX IVP ONE (22:01)
[2024-05-24 05:50] LABS: BASOPHILS % (AUTO) 0.3 % (0.2-1.0); EOSINOPHILS % (AUTO) 0.2 % (0.9-2.9); HEMATOCRIT 24.9 % (42.0-54.0); HEMOGLOBIN 8.2 g/dL (13.5-18.0); LYMPHOCYTES # (AUTO) 1.1 X10^3/uL (1.3-2.9); LYMPHOCYTES % (AUTO) 13.6 % (21.0-51.0); MEAN CORPUSCULAR HEMOGLOBIN 29.8 pg (27.0-34.0); MEAN CORPUSCULAR HGB CONC 32.8 g/dL (33.0-35.0); MEAN CORPUSCULAR VOLUME 90.9 fL (80.0-100.0); MEAN PLATELET VOLUME 10.5 fL (7.4-11.0); MONOCYTES # (AUTO) 0.9 x10^3/uL (0.3-0.8); NEUTROPHILS # (AUTO) 6.3 x10^3/uL (2.2-4.8); NEUTROPHILS % (AUTO) 74.9 % (42.0-75.0); PLATELET COUNT 90 X10^3/uL (150.0-450.0); RED BLOOD COUNT 2.74 X10^6/uL (4.7-6.0); RED CELL DISTRIBUTION WIDTH 27.3 % (11.6-16.5); WHITE BLOOD COUNT 8.5 X10^3/uL (3.6-10.0)
[2024-05-24 06:11] LABS: ALANINE AMINOTRANSFERASE 17 Units/L (12-78); ALBUMIN 1.1 g/dL (3.4-5.0); ALKALINE PHOSPHATASE 121 Units/L (46-116); ASPARTATE AMINO TRANSFERASE 68 Units/L (15-37); BLOOD UREA NITROGEN 21 mg/dL (7-18); CALCIUM 6.6 mg/dL (8.5-10.1); CARBON DIOXIDE 19.2 mmol/L (21-32); COR CA(FOR HYPOALB) 8.9 mg/dL (8.5-10.1); COR NA(FOR HYPERGLY) 144 mmol/L (136-145); CREATININE 1.31 mg/dL (0.70-1.30); GLUCOSE 117 mg/dL (65-99); POTASSIUM 4.8 mmol/L (3.5-5.1); SODIUM 144 mmol/L (136-145); TOTAL PROTEIN 5.4 g/dL (6.4-8.2); eGFR NON BLACK RACES 58 (>60)
[2024-05-24 06:16] LABS: CHLORIDE 115 mmol/L (98-107)
[2024-05-24 06:26] LABS: ANISOCYTOSIS 3+; PLATELET MORPHOLOGY COMMENT NORMAL (NORMAL)
[2024-05-24 06:27] LABS: POIKILOCYTOSIS 1+
[2024-05-24 06:28] LABS: BURR CELLS SLIGHT; SCHISTOCYTES SLIGHT; TARGET CELLS SLIGHT
[2024-05-24 09:28] LABS: ABG BASE EXCESS -8.9 mmol/L (-2.0-2.0)
[2024-05-24 09:29] LABS: ABG ALLEN TEST POS; ABG HCO3 13.3 mmol/L (22-26)
[2024-05-24] MEDS: SOLU-Cortef INJ IVP ONE (11:05)
[2024-05-24] MEDS: CIPRO IV 400 MG PREMIX* 400 MG/200 ML IV.SOLN. IV SCH (11:16)
[2024-05-24] MEDS: D5 NS 1,000 ML IV 1,000 ML IV SCH (11:16)
[2024-05-24] MEDS: ALBUMIN HUMAN 25%- 100 ML 100 ML IV SCH (11:17)
[2024-05-24] MEDS: XARELTO PO SCH (12:03)
[2024-05-24] MEDS: LOPRESSOR TAB 25 MG PO SCH (12:03)
[2024-05-24] MEDS: LASIX IVP SCH (12:03)
[2024-05-24 12:06] LABS: BILIRUBIN,URINE NEGATIVE (NEGATIVE); BLOOD/HEMOGLOBIN,URINE NEGATIVE (NEGATIVE); GLUCOSE, URINE NEGATIVE (NEGATIVE); KETONES,URINE NEGATIVE (NEGATIVE); LEUKOCYTE ESTERASE ,URINE NEGATIVE (NEGATIVE); NITRITES,URINE NEGATIVE (NEGATIVE); PROTEIN,URINE NEGATIVE (NEGATIVE); UROBILINOGEN,URINE NORMAL (NORMAL)
[2024-05-24 12:10] LABS: APPEARANCE,URINE CLEAR (CLEAR); COLOR,URINE PALE YELLOW (YELLOW)
[2024-05-24] MEDS: NS 500 ML IV 500 ML IV ONE (12:30)
[2024-05-24] MEDS ORDERED: NS 250 ML IV 250 ML IV PRN (19:01)
[2024-05-24] MEDS: ASCORBIC ACID INJ MULTI-DOSE VIAL 3,000 MG in NS 50 ML IV 50 ML IV SCH (20:53)
[2024-05-24] MEDS: SOLU-Cortef INJ IVP SCH (20:54)
[2024-05-24] MEDS: THIAMINE HCL INJ IVP SCH (20:54)
[2024-05-24 21:49] LABS: HEMATOCRIT 34.1 % (42.0-54.0); HEMOGLOBIN 11.4 g/dL (13.5-18.0)
[2024-05-25 05:54] LABS: HEMOGLOBIN 11.6 g/dL (13.5-18.0); WHITE BLOOD COUNT 10.3 X10^3/uL (3.6-10.0)
[2024-05-25 05:59] LABS: BASOPHILS % (AUTO) 0.3 % (0.2-1.0); HEMATOCRIT 34.5 % (42.0-54.0); LYMPHOCYTES # (AUTO) 0.8 X10^3/uL (1.3-2.9); LYMPHOCYTES % (AUTO) 7.9 % (21.0-51.0); MEAN CORPUSCULAR HEMOGLOBIN 29.7 pg (27.0-34.0); MEAN CORPUSCULAR HGB CONC 33.7 g/dL (33.0-35.0); MEAN CORPUSCULAR VOLUME 88.4 fL (80.0-100.0); MEAN PLATELET VOLUME 10.6 fL (7.4-11.0); MONOCYTES # (AUTO) 1.1 x10^3/uL (0.3-0.8); MONOCYTES % (AUTO) 10.8 % (0.0-13.0); NEUTROPHILS # (AUTO) 8.4 x10^3/uL (2.2-4.8); PLATELET COUNT 91 X10^3/uL (150.0-450.0); RED BLOOD COUNT 3.91 X10^6/uL (4.7-6.0); RED CELL DISTRIBUTION WIDTH 19.9 % (11.6-16.5)
[2024-05-25 06:05] LABS: ALANINE AMINOTRANSFERASE 33 Units/L (12-78); ALBUMIN 1.5 g/dL (3.4-5.0); ALKALINE PHOSPHATASE 113 Units/L (46-116); ASPARTATE AMINO TRANSFERASE 115 Units/L (15-37); BLOOD UREA NITROGEN 26 mg/dL (7-18); CALCIUM 6.8 mg/dL (8.5-10.1); CARBON DIOXIDE 19.9 mmol/L (21-32); COR CA(FOR HYPOALB) 8.8 mg/dL (8.5-10.1); COR NA(FOR HYPERGLY) 147 mmol/L (136-145); CREATININE 1.47 mg/dL (0.70-1.30); GLUCOSE 114 mg/dL (65-99); POTASSIUM 4.7 mmol/L (3.5-5.1); SODIUM 147 mmol/L (136-145); TOTAL PROTEIN 5.8 g/dL (6.4-8.2); eGFR NON BLACK RACES 51 (>60)
--- NOTE | 2024-05-25 06:05 | RAD ---
EXAM:CHEST, 1 VIEWHISTORY:HYPOXIA, RESP. DISTRESS;COMPARISON:05/23/2024FINDINGS:S table cardiomediastinal silhouette and left subclavian CVC. There is hazy right mid and lower lung opacity. Left lung grossly clear. Possible small right pleural effusion. No visible pneumothorax or acute osseous finding.IMPRESSION:Hazy right mid and lower lung opacity and possible small right pleural effusion.THIS IS AN ELECTRONICALLY VERIFIED FINAL REPORT05/25/2024 6:01 AM - Electronically signed by Keenan Littlejohn MD
[2024-05-25 06:11] LABS: CHLORIDE 116 mmol/L (98-107)
[2024-05-25 06:40] LABS: BAND NEUTROPHILS % 3 % (0-10)
[2024-05-25 06:42] LABS: PLATELET MORPHOLOGY COMMENT NORMAL (NORMAL)
[2024-05-25 06:43] LABS: ANISOCYTOSIS SLIGHT
[2024-05-25 06:44] LABS: BURR CELLS SLIGHT; SCHISTOCYTES SLIGHT; TARGET CELLS SLIGHT
[2024-05-25 06:56] LABS: GIANT PLATELET RARE
--- NOTE | 2024-05-25 07:50 | RAD ---
EXAM:CHEST, 1 VIEWHISTORY:SOB; HX: TIA, THYROID CANCER SX: STENTS, THYROIDECTOMY, TRACH, LARYNGECTOMYCOMPARISON:05/24/2024FINDINGS: r opacity not significantly changed. Left lung grossly clear. No visible pneumothorax or acute osseous finding.IMPRESSION:No significant interval change.THIS IS AN ELECTRONICALLY VERIFIED FINAL REPORT05/25/2024 7:47 AM - Electronically signed by Keenan Littlejohn MD
[2024-05-25 08:56] VITALS: O2SAT 100
[2024-05-25] MEDS ORDERED: NS 250 ML IV 25 ML IV PRN (11:29)
[2024-05-25] MEDS ORDERED: PHARMACY CONSULT - VANCOMYCIN XX SCH (12:00)
[2024-05-25] MEDS: VANCOMYCIN IV *PREMIX 1.25 G/250 ML BAG 1.25 G/250 ML PIGGYBACK IV SCH (12:56)
[2024-05-25] MEDS: D5 LR 1,000 ML 1,000 ML IV SCH (12:56)
[2024-05-25 17:05] VITALS: BP 125/58; PULSE 59; RESP 15; TEMP 97.9
[2024-05-25] MEDS: ZOSYN VIAL 3.375 GRAMS 3.375 G in NS 100 ML IV 100 ML IV SCH (17:07)
[2024-05-28] MEDS ORDERED: PHARMACY COMMENT IV SCH (12:00)
== END 2024-05-25 18:10 | disposition short-term general hospital (02) ==
LOC: ER 10:36 → ICU 10:36
PROVIDERS: ADMIT Obstetrics & Gynecology Obstetrics; ATTEND Obstetrics & Gynecology Obstetrics
DX: L89.309 Pressure ulcer of unspecified buttock, unspecified stage; I70.223 Atherosclerosis of native arteries of extremities with rest pain, bilateral legs; R53.81 Other malaise; Z16.29 Resistance to other single specified antibiotic; L76.22 Postprocedural hemorrhage of skin and subcutaneous tissue following other procedure; N50.89 Other specified disorders of the male genital organs; Z93.0 Tracheostomy status; L97.529 Non-pressure chronic ulcer of other part of left foot with unspecified severity; I67.4 Hypertensive encephalopathy; R94.31 Abnormal electrocardiogram [ECG] [EKG]; I25.2 Old myocardial infarction; T73.0XXA Starvation, initial encounter; I50.9 Heart failure, unspecified; Z16.12 Extended spectrum beta lactamase (ESBL) resistance; J15.212 Pneumonia due to Methicillin resistant Staphylococcus aureus; E89.0 Postprocedural hypothyroidism; Z86.73 Personal history of transient ischemic attack (TIA), and cerebral infarction without residual deficits; T50.995A Adverse effect of other drugs, medicaments and biological substances, initial encounter; R00.1 Bradycardia, unspecified; R62.7 Adult failure to thrive; E78.5 Hyperlipidemia, unspecified; J43.2 Centrilobular emphysema; M62.81 Muscle weakness (generalized); E87.6 Hypokalemia; Y95 Nosocomial condition; G93.49 Other encephalopathy; K59.09 Other constipation; I11.0 Hypertensive heart disease with heart failure; R74.01 Elevation of levels of liver transaminase levels; R70.0 Elevated erythrocyte sedimentation rate; R47.01 Aphasia; Z85.21 Personal history of malignant neoplasm of larynx; I83.025 Varicose veins of left lower extremity with ulcer other part of foot; Z85.850 Personal history of malignant neoplasm of thyroid; E86.0 Dehydration; R00.0 Tachycardia, unspecified; R10.84 Generalized abdominal pain; E87.29 Other acidosis